=== PATIENT | female | born 1945 | race African-American/Black ===

== ENCOUNTER 2017-03-31 14:35 | Observation (INO) | payer MEDICARE, MEDICAID ==
[~2017-03-31] VITALS: Ht 157.5 cm; Wt 42.0 kg
[~2017-03-31 14:35] MED LIST: ACET325 PO; AZIT600 PO; DAPS100 PO; DOCU1CAP39 PO; Gabapentin PO; METO25 PO; OXYC1SOL5 PO
[2017-03-31 14:37] VITALS: BP 166/87; PULSE 114; TEMP 97.8; O2SAT 96
[2017-03-31] MEDS ORDERED: KETOROLAC TROMETHAMINE 60 MG/2 ML (IM) VIAL IM ONE (16:00)
--- NOTE | 2017-03-31 16:05 | PD ---
HPI Chief Complaint: Injury Time Seen by Provider: 15:53 Travel History International Travel<30 days: No Contact w/Intl Traveler<30days: No Traveled to known affect area: No History of Present Illness HPI 71yo F with PMH of HTN, CKD, CHF, HIV on meds with unknown CD4 count presents to the ED with c/o right knee pain. Pt states she tripped and fell on the side walk about 1 week ago but for the last 2 days, she cant walk on her walker because of the pain. Pt is unable to extend her right knee and is more swollen compare to her left. Denies any fever, chest pain, sob, n/v, abdominal pain, focal weakness or numbness. PFSH Past Medical History Arthritis: Yes Anxiety: Yes Cancer: No Cardiovascular Problems: Yes Congestive Heart Failure: Yes Diminished Hearing: No Endocrine: No Genitourinary: Yes Hypertension: Yes Immune Disorder: No Musculoskeletal: Yes Neurologic: Yes Psychiatric: Yes Reproductive: No Respiratory: No Immunizations Current: Yes Renal Failure: Yes Tetanus Vaccination: Unknown Influenza Vaccination: No ?: Not Menopausal: Yes Past Surgical History AICD: No Arteriovenous Shunt: No Section: Yes (x 2) Gynecologic Surgery: Yes ( X 2) Insulin Pump: No Joint Replacement: No Pacemaker: No Social History Alcohol Use: Yes (OCC- beer ) Tobacco Use: No Substance Use: No Allergies-Medications (Allergen,Severity, Reaction): Coded Allergies: No Known Allergies (Unverified , 03/07/15) Reported Meds & Prescriptions Reported Meds & Active Scripts Active Reported Mepron Liq (Atovaquone) 750 Mg/5 Ml Susp 1,500 Mg PO DAILY Take with food. Triumeq (Wcwrestl-Mykjmtlzixiz-Xiohsewnij) 600-50-300 Mg Tab 1 Tab PO DAILY Hazardous agent; use appropriate precautions for handling & disposal. Clonidine (Clonidine HCl) 0.1 Mg Tab 0.1 Mg PO DAILY Lisinopril 40 Mg Tab 40 Mg PO DAILY Review of Systems Except as stated in HPI: all other systems reviewed are Neg Physical Exam Narrative GENERAL: 71yo F in moderate distress. SKIN: Focused skin assessment warm/dry. HEAD: Atraumatic. Normocephalic. EYES: Pupils equal and round. No scleral icterus. No injection or drainage. ENT: No nasal bleeding or discharge. Mucous membranes pink and moist. NECK: Trachea midline. No JVD. CARDIOVASCULAR: Regular rate and rhythm. No murmur appreciated. RESPIRATORY: No accessory muscle use. Clear to auscultation. Breath sounds equal bilaterally. GASTROINTESTINAL: Abdomen soft, non-tender, nondistended. MUSCULOSKELETAL: Right knee: +Mild erythema and warmth. +Diffuse ttp. Mild edema. Unable to extend. Sensation intact. DP 2+. NEUROLOGICAL: Awake and alert. No obvious cranial nerve deficits. Motor grossly within normal limits. Normal speech. PSYCHIATRIC: Appropriate mood and affect; insight and judgment normal. Data Data Last Documented VS Vital Signs Date Time Temp Pulse Resp B/P Pulse Ox O2 Delivery O2 Flow Rate FiO2 03/31/17 18:56 94 20 198/87 95 03/31/17 18:55 Room Air 03/31/17 14:37 97.8 Orders Knee, Ltd (1 Or 2vws) (03/31/17 ) Hip, Uni(Ap&Lat) W Ap Pelvis (03/31/17 ) Ketorolac Inj (Toradol Inj) (03/31/17 16:00) Morphine Inj (Morphine Inj) (03/31/17 16:15) Complete Blood Count With Diff (03/31/17 16:05) Basic Metabolic Panel (Bmp) (03/31/17 16:05) Prothrombin Time / Inr (Pt) (03/31/17 16:05) Act Partial Throm Time (Ptt) (03/31/17 16:05) Westergren Sedimentation Rate (03/31/17 16:05) C-Reactive Protein (Crp) (03/31/17 16:05) Blood Culture (03/31/17 16:08) Lactic Acid Sepsis Protocol (03/31/17 16:08) Morphine Inj (Morphine Inj) (03/31/17 16:30) Lidocaine 1% Inj (50 Ml) (Xylocaine 1% I (03/31/17 16:45) Vancomycin Inj (Vancomycin Inj) (03/31/17 18:30) Cefepime Inj (Maxipime Inj) (03/31/17 18:30) Place In Observation (03/31/17 ) Vital Signs (Adult) REMY.Q4H (03/31/17 18:46) Activity Bed Rest (03/31/17 18:46) Sodium Chloride 0.9% Flush (Ns Flush) (03/31/17 21:00) Consult Orthopedic (03/31/17 ) (Hub Use Only)Inp Phy Cons/Ref (03/31/17 ) Admit Order (Ed Use Only) (03/31/17 20:20) Labs Laboratory Tests Test 03/31/17 03/31/17 16:35 16:40 White Blood Count 4.4 TH/MM3 Red Blood Count 3.85 MIL/MM3 Hemoglobin 10.9 GM/DL Hematocrit 32.7 % Mean Corpuscular Volume 84.8 FL Mean Corpuscular Hemoglobin 28.3 PG Mean Corpuscular Hemoglobin 33.3 % Concent Red Cell Distribution Width 14.6 % Platelet Count 289 TH/MM3 Mean Platelet Volume 9.0 FL Neutrophils (%) (Auto) 73.6 % Lymphocytes (%) (Auto) 15.6 % Monocytes (%) (Auto) 9.2 % Eosinophils (%) (Auto) 1.3 % Basophils (%) (Auto) 0.3 % Neutrophils # (Auto) 3.2 TH/MM3 Lymphocytes # (Auto) 0.7 TH/MM3 Monocytes # (Auto) 0.4 TH/MM3 Eosinophils # (Auto) 0.1 TH/MM3 Basophils # (Auto) 0.0 TH/MM3 CBC Comment DIFF FINAL Differential Comment Erythrocyte Sedimentation Rate GREATER THAN 140 mm/hr Prothrombin Time 10.5 SEC Prothromb Time International 1.0 RATIO Ratio Activated Partial 26.8 SEC Thromboplast Time Sodium Level 139 MEQ/L Potassium Level 5.0 MEQ/L Chloride Level 110 MEQ/L Carbon Dioxide Level 23.0 MEQ/L Anion Gap 6 MEQ/L Blood Urea Nitrogen 55 MG/DL Creatinine 2.76 MG/DL Estimat Glomerular Filtration 21 ML/MIN Rate Random Glucose 101 MG/DL Calcium Level 9.5 MG/DL C-Reactive Protein 7.89 MG/DL Lactic Acid Level 0.9 mmol/L MDM Medical Decision Making Medical Screen Exam Complete: Yes Emergency Medical Condition: Yes Differential Diagnosis Septic joint vs. hemarthrosis vs. contusion vs. cellulitis vs. fracture Narrative Course 71yo with right knee pain s/p fall 1 week ago. States pain worsened last 2 days. Denies any fever. Pt given morphine for pain. Pt was seen at end of my shift and care of patient transferred to next team to follow up labs, xray as well as reevaluate. Diagnosis Primary Impression: Knee pain Qualified Code: M25.561 - Acute pain of right knee Rachelle Morejon DO Mar 31, 2017 16:05
[2017-03-31] MEDS ORDERED: MORPHINE SULFATE 4 MG/ML INJ IV PUSH ONE (16:15)
[2017-03-31] MEDS ORDERED: LISI40TA PO (16:23)
[2017-03-31] MEDS ORDERED: CLON0.1T PO (16:23)
[2017-03-31] MEDS ORDERED: ABAC1TAB3 PO (16:24)
[2017-03-31] MEDS ORDERED: ATOV750UDC PO (16:27)
[2017-03-31] MEDS ORDERED: MORPHINE SULFATE 8 MG/ML INJ IV PUSH ONE (16:30)
[2017-03-31] MEDS ORDERED: LIDOCAINE HCL 1% 50 ML VIAL INFIL ONE (16:45)
[2017-03-31 17:05] LABS: AUTOMATED NEUTROPHIL # 3.2 TH/MM3 (1.8-7.7); BASOPHIL % 0.3 % (0.0-2.0); EOSINOPHIL # 0.1 TH/MM3 (0-0.4); EOSINOPHIL % 1.3 % (0.0-4.0); HEMATOCRIT 32.7 % (35.0-46.0); HEMO FLAGS DIFF FINAL; LYMPH % 15.6 % (9.0-44.0); LYMPHOCYTE # 0.7 TH/MM3 (1.0-4.8); MEAN CELL VOLUME 84.8 FL (80.0-100.0); MEAN CORPUSCULAR HEMOGLOBIN 28.3 PG (27.0-34.0); MEAN CORPUSCULAR HGB CONC 33.3 % (32.0-36.0); MONO % 9.2 % (0.0-8.0); NEUT % 73.6 % (16.0-70.0); PLATELET COUNT 289 TH/MM3 (150-450); RED BLOOD COUNT 3.85 MIL/MM3 (4.00-5.30); RED CELL DISTRIBUTION WIDTH 14.6 % (11.6-17.2); WHITE BLOOD COUNT 4.4 TH/MM3 (4.0-11.0)
[2017-03-31 17:17] LABS: APTT (PATIENT) 26.8 SEC (24.3-30.1); PROTHROMBIN TIME - PATIENT 10.5 SEC (9.8-11.6)
--- NOTE | 2017-03-31 17:26 | RADRPT ---
EXAM DATE/TIME: 03/31/2017 16:54 [facility] COMPARISON: No previous studies available for comparison. INDICATIONS : Right knee pain after fall. MEDICAL HISTORY : None. SURGICAL HISTORY : None. ENCOUNTER: Initial ACUITY: 1 week PAIN SCORE: 10/10 LOCATION: Right knee. FINDINGS: Two view examination of the right knee demonstrates no evidence of fracture or dislocation. Bony min eralization is normal. Marked osteopenia. CONCLUSION: Unremarkable limited examination of the right knee. Marked soft tissue swelling overlying the suprapa tellar region Brody Odonnell MD on March 31, 2017 at 17:24 Board Certified Radiologist. This report was verified electronically.
--- NOTE | 2017-03-31 17:27 | RADRPT ---
EXAM DATE/TIME: 03/31/2017 16:54 [facility] COMPARISON: No previous studies available for comparison. INDICATIONS : Right hip pain after fall. MEDICAL HISTORY : None. SURGICAL HISTORY : None. ENCOUNTER: Initial ACUITY: 1 week PAIN SCORE: 10/10 LOCATION: Right hip. FINDINGS: Examination of the right hip was performed with AP Pelvis. The primary and secondary trabecular brook nena of the femoral neck is intact. The hip joint is of normal width without significant sclerosis or bony hypertrophy. The acetabulum is grossly intact. CONCLUSION: Unremarkable examination of the right hip. Brody Odonnell MD on March 31, 2017 at 17:25 Board Certified Radiologist. This report was verified electronically.
[2017-03-31] MEDS ORDERED: CEFEPIME INJ 2,000 MG in SODIUM CHLORIDE 0.9% INJ 100 ML IV ONE (18:30)
[2017-03-31] MEDS ORDERED: VANCOMYCIN INJ 650 MG in SODIUM CHLOR 0.9% 250 ML INJ 250 ML IV ONE (18:30)
--- NOTE | 2017-03-31 18:33 | PD ---
Physical Exam Date Seen by Provider: Mar 31, 2017 Data Data Last Documented VS Vital Signs Date Time Temp Pulse Resp B/P Pulse Ox O2 Delivery O2 Flow Rate FiO2 03/31/17 18:56 94 20 198/87 95 03/31/17 18:55 Room Air 03/31/17 14:37 97.8 Orders Knee, Ltd (1 Or 2vws) (03/31/17 ) Hip, Uni(Ap&Lat) W Ap Pelvis (03/31/17 ) Ketorolac Inj (Toradol Inj) (03/31/17 16:00) Morphine Inj (Morphine Inj) (03/31/17 16:15) Complete Blood Count With Diff (03/31/17 16:05) Basic Metabolic Panel (Bmp) (03/31/17 16:05) Prothrombin Time / Inr (Pt) (03/31/17 16:05) Act Partial Throm Time (Ptt) (03/31/17 16:05) Westergren Sedimentation Rate (03/31/17 16:05) C-Reactive Protein (Crp) (03/31/17 16:05) Blood Culture (03/31/17 16:08) Lactic Acid Sepsis Protocol (03/31/17 16:08) Morphine Inj (Morphine Inj) (03/31/17 16:30) Lidocaine 1% Inj (50 Ml) (Xylocaine 1% I (03/31/17 16:45) Vancomycin Inj (Vancomycin Inj) (03/31/17 18:30) Cefepime Inj (Maxipime Inj) (03/31/17 18:30) Place In Observation (03/31/17 ) Vital Signs (Adult) REMY.Q4H (03/31/17 18:46) Activity Bed Rest (03/31/17 18:46) Sodium Chloride 0.9% Flush (Ns Flush) (03/31/17 21:00) Consult Orthopedic (03/31/17 ) (Hub Use Only)Inp Phy Cons/Ref (03/31/17 ) Admit Order (Ed Use Only) (03/31/17 20:20) Labs Laboratory Tests Test 03/31/17 03/31/17 16:35 16:40 White Blood Count 4.4 TH/MM3 Red Blood Count 3.85 MIL/MM3 Hemoglobin 10.9 GM/DL Hematocrit 32.7 % Mean Corpuscular Volume 84.8 FL Mean Corpuscular Hemoglobin 28.3 PG Mean Corpuscular Hemoglobin 33.3 % Concent Red Cell Distribution Width 14.6 % Platelet Count 289 TH/MM3 Mean Platelet Volume 9.0 FL Neutrophils (%) (Auto) 73.6 % Lymphocytes (%) (Auto) 15.6 % Monocytes (%) (Auto) 9.2 % Eosinophils (%) (Auto) 1.3 % Basophils (%) (Auto) 0.3 % Neutrophils # (Auto) 3.2 TH/MM3 Lymphocytes # (Auto) 0.7 TH/MM3 Monocytes # (Auto) 0.4 TH/MM3 Eosinophils # (Auto) 0.1 TH/MM3 Basophils # (Auto) 0.0 TH/MM3 CBC Comment DIFF FINAL Differential Comment Erythrocyte Sedimentation Rate GREATER THAN 140 mm/hr Prothrombin Time 10.5 SEC Prothromb Time International 1.0 RATIO Ratio Activated Partial 26.8 SEC Thromboplast Time Sodium Level 139 MEQ/L Potassium Level 5.0 MEQ/L Chloride Level 110 MEQ/L Carbon Dioxide Level 23.0 MEQ/L Anion Gap 6 MEQ/L Blood Urea Nitrogen 55 MG/DL Creatinine 2.76 MG/DL Estimat Glomerular Filtration 21 ML/MIN Rate Random Glucose 101 MG/DL Calcium Level 9.5 MG/DL C-Reactive Protein 7.89 MG/DL Lactic Acid Level 0.9 mmol/L [facility] Medical Record Reviewed: Yes Supervised Visit with ELIZABETH: No Interpretation(s) Vital Signs Date Time Temp Pulse Resp B/P Pulse Ox O2 Delivery O2 Flow Rate FiO2 03/31/17 14:37 97.8 114 166/87 96 Laboratory Tests Test 03/31/17 03/31/17 16:35 16:40 White Blood Count 4.4 TH/MM3 (4.0-11.0) Red Blood Count 3.85 MIL/MM3 (4.00-5.30) Hemoglobin 10.9 GM/DL (11.6-15.3) Hematocrit 32.7 % (35.0-46.0) Mean Corpuscular Volume 84.8 FL (80.0-100.0) Mean Corpuscular Hemoglobin 28.3 PG (27.0-34.0) Mean Corpuscular Hemoglobin 33.3 % Concent (32.0-36.0) Red Cell Distribution Width 14.6 % (11.6-17.2) Platelet Count 289 TH/MM3 (150-450) Mean Platelet Volume 9.0 FL (7.0-11.0) Neutrophils (%) (Auto) 73.6 % (16.0-70.0) Lymphocytes (%) (Auto) 15.6 % (9.0-44.0) Monocytes (%) (Auto) 9.2 % (0.0-8.0) Eosinophils (%) (Auto) 1.3 % (0.0-4.0) Basophils (%) (Auto) 0.3 % (0.0-2.0) Neutrophils # (Auto) 3.2 TH/MM3 (1.8-7.7) Lymphocytes # (Auto) 0.7 TH/MM3 (1.0-4.8) Monocytes # (Auto) 0.4 TH/MM3 (0-0.9) Eosinophils # (Auto) 0.1 TH/MM3 (0-0.4) Basophils # (Auto) 0.0 TH/MM3 (0-0.2) CBC Comment DIFF FINAL Differential Comment Erythrocyte Sedimentation Rate GREATER THAN 140 mm/hr (0-30) Prothrombin Time 10.5 SEC (9.8-11.6) Prothromb Time International 1.0 RATIO Ratio Activated Partial 26.8 SEC Thromboplast Time (24.3-30.1) Sodium Level 139 MEQ/L (136-145) Potassium Level 5.0 MEQ/L (3.5-5.1) Chloride Level 110 MEQ/L (98-107) Carbon Dioxide Level 23.0 MEQ/L (21.0-32.0) Anion Gap 6 MEQ/L (5-15) Blood Urea Nitrogen 55 MG/DL (7-18) Creatinine 2.76 MG/DL (0.50-1.00) Estimat Glomerular Filtration 21 ML/MIN (>89) Rate Random Glucose 101 MG/DL (74-106) Calcium Level 9.5 MG/DL (8.5-10.1) C-Reactive Protein 7.89 MG/DL (0.00-0.30) Lactic Acid Level 0.9 mmol/L (0.4-2.0) Last Impressions Knee X-Ray 03/31/17 0000 Signed Impressions: Service Date/Time: Friday, March 31, 2017 16:54 - CONCLUSION: Unremarkable limited examination of the right knee. Marked soft tissue swelling overlying the suprapatellar region Brody Odonnell MD Hip and Pelvis X-Ray 03/31/17 0000 Signed Impressions: Service Date/Time: Friday, March 31, 2017 16:54 - CONCLUSION: Unremarkable examination of the right hip. Brody Odonnell MD Differential Diagnosis Differential includes septic arthritis, hemarthrosis, cellulitis, knee effusion Narrative Course patient signed out to me by Dr. Morejon, pending labs and xrays Patient is a 71 year old female with hx of htn, ckd, hiv chf, - unknown CD4 count- presents to ER with c/o of right knee pain. Patient reports that 1-1.5 weeks ago, she fell and landed on her right knee. Patient reports that she does use a walker to ambulate, patient reports that she has not been able in late for the past 2 days due to pain to her right knee. Patient with no fevers or chills, no nausea or vomiting. Laboratory Tests Test 03/31/17 03/31/17 16:35 16:40 White Blood Count 4.4 TH/MM3 (4.0-11.0) Red Blood Count 3.85 MIL/MM3 (4.00-5.30) Hemoglobin 10.9 GM/DL (11.6-15.3) Hematocrit 32.7 % (35.0-46.0) Mean Corpuscular Volume 84.8 FL (80.0-100.0) Mean Corpuscular Hemoglobin 28.3 PG (27.0-34.0) Mean Corpuscular Hemoglobin 33.3 % Concent (32.0-36.0) Red Cell Distribution Width 14.6 % (11.6-17.2) Platelet Count 289 TH/MM3 (150-450) Mean Platelet Volume 9.0 FL (7.0-11.0) Neutrophils (%) (Auto) 73.6 % (16.0-70.0) Lymphocytes (%) (Auto) 15.6 % (9.0-44.0) Monocytes (%) (Auto) 9.2 % (0.0-8.0) Eosinophils (%) (Auto) 1.3 % (0.0-4.0) Basophils (%) (Auto) 0.3 % (0.0-2.0) Neutrophils # (Auto) 3.2 TH/MM3 (1.8-7.7) Lymphocytes # (Auto) 0.7 TH/MM3 (1.0-4.8) Monocytes # (Auto) 0.4 TH/MM3 (0-0.9) Eosinophils # (Auto) 0.1 TH/MM3 (0-0.4) Basophils # (Auto) 0.0 TH/MM3 (0-0.2) CBC Comment DIFF FINAL Differential Comment Erythrocyte Sedimentation Rate GREATER THAN 140 mm/hr (0-30) Prothrombin Time 10.5 SEC (9.8-11.6) Prothromb Time International 1.0 RATIO Ratio Activated Partial 26.8 SEC Thromboplast Time (24.3-30.1) Sodium Level 139 MEQ/L (136-145) Potassium Level 5.0 MEQ/L (3.5-5.1) Chloride Level 110 MEQ/L (98-107) Carbon Dioxide Level 23.0 MEQ/L (21.0-32.0) Anion Gap 6 MEQ/L (5-15) Blood Urea Nitrogen 55 MG/DL (7-18) Creatinine 2.76 MG/DL (0.50-1.00) Estimat Glomerular Filtration 21 ML/MIN (>89) Rate Random Glucose 101 MG/DL (74-106) Calcium Level 9.5 MG/DL (8.5-10.1) C-Reactive Protein 7.89 MG/DL (0.00-0.30) Lactic Acid Level 0.9 mmol/L (0.4-2.0) Labs reviewed, WBC 4.4, hemoglobin 10.9, hematocrit 32.7, ESR is greater than 140 CRP is 7.89 Sodium 139, potassium 5.0, BUN 55, creatinine 2.76 (elevated when compared to BUN/CR from 03/23/15: 30/1.80) Last Impressions Knee X-Ray 03/31/17 0000 Signed Impressions: Service Date/Time: Friday, March 31, 2017 16:54 - CONCLUSION: Unremarkable limited examination of the right knee. Marked soft tissue swelling overlying the suprapatellar region Brody Odonnell MD Hip and Pelvis X-Ray 03/31/17 0000 Signed Impressions: Service Date/Time: Friday, March 31, 2017 16:54 - CONCLUSION: Unremarkable examination of the right hip. Brody Odonnell MD X-ray of the knee shows some soft tissue swelling over the suprapatellar region. She does have warmth to her right knee with swelling, with mild swelling. Patient with elevated ESR and CRP, this could be due to septic arthritis vs hemarthrosis. Septic arthritis is within the differential. Her elevated CRP and ESR could be secondary to HIV as patient does follow up with Dr. Fuller but is not compliant with her medications. Unknown what her CD4 count is. Case reviewed with Dr. Knott who accepts pt to service. Request call made to Dr. Casper for further plan of care - request that knee be aspirated - and patient be started with iv vanco and ancef I performed aspiration of right knee - iv vanco and ancef ordered Procedures Procedure Narrative right knee effusion aspirate: 1% lidocaine used as an anesthetic. After area was cleaned with Betadine, right knee was flexed, using sterile precautions, a 22-gauge LP needle was placed under patella at 10oclock position, 10cc of clear synovial fluids drained from right knee. Cultures and gram stain sent Diagnosis Primary Impression: Septic joint of right knee joint Qualified Code: M00.9 - Pyogenic arthritis of right knee joint, due to unspecified organism Additional Impression: Renal failure Qualified Code: N19 - Renal failure, unspecified chronicity Admitting Information Admitting Physician Requests: Kaycee Barbosa DO Mar 31, 2017 18:33
[2017-03-31 18:55] VITALS: BP 200/114; PULSE 95; RESP 18; O2SAT 95
[2017-03-31 18:56] VITALS: BP 198/87; PULSE 94; RESP 20; O2SAT 95
[2017-03-31] MEDS ORDERED: ceFAZolin 2 GM PREMIX 50 ML IV ONE (21:00)
[2017-03-31] MEDS ORDERED: VANCOMYCIN INJ 1,000 MG in SODIUM CHLOR 0.9% 250 ML INJ 250 ML IV ONE (21:00)
[2017-03-31 21:29] VITALS: BP 177/98; PULSE 90; RESP 18; O2SAT 96
[2017-03-31 22:50] LABS: WBC, SYNOVIAL FLUID 870 /MM3 (0-200)
[2017-03-31 23:03] LABS: SYNOVIAL FLUID CRYSTALS POS - URIC ACID
--- NOTE | 2017-03-31 23:23 | HHI.HP ---
[facility] Storm Taylor MD Admission Diagnosis Possible septic joint Diagnoses: Chief Complaint: right knee pain and sweeling Travel History International Travel<30 Days: No Contact w/Intl Traveler <30 Da: No Traveled to Known Affected Are: No History of Present Illness Written by PATY Camargo acting as scribe for [Frankie] on 03/31/17 at 23: 17. 71 y/o female with a history HTN, CKD, CHF, and HIV presented to the ED with complaints of swelling and pain in her right knee. She states the pain and swelling has been going on for 3-4 days. She states it hurts to walk and bend her knee. She does walk with a walker. She denies falling or any trauma to her knee. She states she had fevers at home with unknown temp, and her knee is very warm. She denies any chills, chest pain, sob, nausea, vomiting, or dysuria. Review of Systems Except as stated in HPI: all other systems reviewed are Neg Past Family Social History Past Medical History HTN CKD CHF HIV Past Surgical History C section x 2 Reported Medications Reported Meds & Active Scripts Active Reported Mepron Liq (Atovaquone) 750 Mg/5 Ml Susp 1,500 Mg PO DAILY Take with food. Triumeq (Iueqxehw-Thbxtyaehbxy-Tzviuwsfpj) 600-50-300 Mg Tab 1 Tab PO DAILY Hazardous agent; use appropriate precautions for handling & disposal. Clonidine (Clonidine HCl) 0.1 Mg Tab 0.1 Mg PO DAILY Lisinopril 40 Mg Tab 40 Mg PO DAILY Allergies: Coded Allergies: No Known Allergies (Unverified , 04/07/17) Active Ordered Medications Current Medications Medications (Trade) Dose Ordered Sig/Caity Route Start Time Stop Time Status Last Admin (NS Flush) 2 ml BID IV FLUSH 03/31/17 21:00 Family History Sister: Breast cancer Social History Tobacco use: Denies Alcohol use: 2 Beers a day Illicit drug use: Denies Physical Exam Vital Signs Vital Signs Date Time Temp Pulse Resp B/P Pulse Ox O2 Delivery O2 Flow Rate FiO2 7/18/17 21:29 90 18 177/98 96 Room Air 03/31/17 18:56 94 20 198/87 95 03/31/17 18:55 95 18 200/114 95 Room Air 03/31/17 14:37 97.8 114 166/87 96 Physical Exam GENERAL: This is a well-nourished, well-developed patient, in no apparent distress. SKIN: No rashes, ecchymoses or lesions. Cool and dry. Right knee warm to touch. HEAD: Atraumatic. Normocephalic. EYES: Pupils equal round and reactive. Extraocular motions intact. ENT: Nose without bleeding, purulent drainage or septal hematoma. Airway patent. NECK: Trachea midline. No JVD or lymphadenopathy. CARDIOVASCULAR: Regular rate and rhythm without murmurs, gallops, or rubs. RESPIRATORY: Clear to auscultation. Breath sounds equal bilaterally. No wheezes , rales, or rhonchi. GASTROINTESTINAL: Abdomen soft, non-tender, nondistended. No hepato-splenomegaly , or palpable masses. No guarding. MUSCULOSKELETAL: Right knee edematous and tender to touch. Unable to bend. No calf tenderness. NEUROLOGICAL: Awake and alert. Motor and sensory grossly within normal limits. Normal speech. Laboratory Laboratory Tests Test 03/31/17 03/31/17 03/31/17 16:35 16:40 21:40 White Blood Count 4.4 Red Blood Count 3.85 Hemoglobin 10.9 Hematocrit 32.7 Mean Corpuscular Volume 84.8 Mean Corpuscular Hemoglobin 28.3 Mean Corpuscular Hemoglobin 33.3 Concent Red Cell Distribution Width 14.6 Platelet Count 289 Mean Platelet Volume 9.0 Neutrophils (%) (Auto) 73.6 Lymphocytes (%) (Auto) 15.6 Monocytes (%) (Auto) 9.2 Eosinophils (%) (Auto) 1.3 Basophils (%) (Auto) 0.3 Neutrophils # (Auto) 3.2 Lymphocytes # (Auto) 0.7 Monocytes # (Auto) 0.4 Eosinophils # (Auto) 0.1 Basophils # (Auto) 0.0 CBC Comment DIFF FINAL Differential Comment Erythrocyte Sedimentation Rate GREATER THAN 140 Prothrombin Time 10.5 Prothromb Time International 1.0 Ratio Activated Partial 26.8 Thromboplast Time Sodium Level 139 Potassium Level 5.0 Chloride Level 110 Carbon Dioxide Level 23.0 Anion Gap 6 Blood Urea Nitrogen 55 Creatinine 2.76 Estimat Glomerular Filtration 21 Rate Random Glucose 101 Calcium Level 9.5 C-Reactive Protein 7.89 Lactic Acid Level 0.9 Synovial Fluid Color YELLOW Synovial Fluid Appearance SLIGHT Synovial Fluid WBC 870 Synovial Fluid RBC 5425 Synovial Fluid Crystals POS - URIC ACID Date/Time Procedure Status Source Growth 03/31/17 21:40 Gram Stain Received Fluid Synovial Fluid Pending 03/31/17 21:40 Body Fluid Culture Received Fluid Synovial Fluid Pending 03/31/17 16:40 Aerobic Blood Culture Received Blood Peripheral Pending 03/31/17 16:40 Anaerobic Blood Culture Received Blood Peripheral Pending Result Diagram: 03/31/17 1635 03/31/17 1635 Imaging Last Impressions Knee X-Ray 03/31/17 0000 Signed Impressions: Service Date/Time: Friday, March 31, 2017 16:54 - CONCLUSION: Unremarkable limited examination of the right knee. Marked soft tissue swelling overlying the suprapatellar region Brody Odonnell MD Hip and Pelvis X-Ray 03/31/17 0000 Signed Impressions: Service Date/Time: Friday, March 31, 2017 16:54 - CONCLUSION: Unremarkable examination of the right hip. Brody Odonnell MD Assessment and Plan Problem List: (1) Septic joint of right knee joint ICD Code: M00.9 Status: Acute (2) Acute kidney injury ICD Code: N17.9 Status: Acute (3) HIV disease ICD Code: B20 Status: Chronic (4) HTN (hypertension) ICD Code: I10 Status: Chronic Assessment and Plan 71 y/o female with a history HTN, CKD, CHF, and HIV presented to the ED with complaints of swelling and pain in her right knee. Right knee pain, questionable septic joint vs gout Knee xray reviewed and shows Unremarkable limited examination of the right knee. Marked soft tissue swelling overlying the suprapatellar region Synovial aspirations positive for uric acid -Consult orthopedic for recommendations -Dilaudid IV for pain management -Prednisone 60mg Daily Acute Kidney injury on CKD stage 3, creatine 2.7, baseline 1.8 -Encourage fluids by mouth due to CHF history -BMP in AM HTN, chronic -Cont home medication clonidine, hold lisinopril for now due to ROXANNA HIV, chronic -Reorder home medications DVT prophylaxis: SCDs GI prophylaxis: Protonix This note was transcribed by [email or web address] [Tg [email or web address]]. I, Dr. Miguel Ángel David personally performed the history, physical exam, and medical decision making; and confirmed the accuracy of the information in the transcribed note. Authenticated by Dr. Miguel Ángel David on 03/31/17 at 23:17. Discussed Condition With Patient Problem Qualifiers (1) Septic joint of right knee joint: Qualified Code: M00.9 - Pyogenic arthritis of right knee joint, due to unspecified organism Tg Figueredo Mar 31, 2017 23:23 Miguel Ángel David MD Apr 13, 2017 20:58
[2017-03-31] MEDS ORDERED: HYDROmorphone HCL PF 1 MG/ML VIAL IV PUSH PRN (23:30)
[2017-04-01] VITALS (10 sets, daily range): BP systolic 104–172; BP diastolic 64–96; PULSE 72–107; RESP 14–18; TEMP 97.5–98.6; O2SAT 93–97
[2017-04-01] MEDS: SODIUM CHLORIDE 0.9% FLUSH 10 ML FLUSH IV FLUSH SCH ×3 (02:42→20:15)
[2017-04-01] MEDS ORDERED: NON-FORMULARY DRUG (Abacavir-Dolutegravir-Lamivudine (Triumeq) 1 TAB) PO SCH (09:00)
--- NOTE | 2017-04-01 10:58 | MB ---
cc: EVENS ROMERO DATE OF CONSULTATION: 04/01/2017 REASON FOR CONSULTATION Right knee pain and swelling. CONSULTING PHYSICIAN Dr. Jayshree Knott. HISTORY OF PRESENT ILLNESS Ms. Frye is a 71-year-old female who has multiple medical problems including hypertension, chronic renal failure, CHF and HIV. She had a fall several days ago. She began developing pain and swelling of her right knee. She presented to the emergency room. X-rays were negative for fracture. She had warmth and effusion of the knee. Her knee was aspirated in the emergency room. The aspirate was positive for gout crystals. She continued to have significant right knee pain. Pain is worse with movement or ambulation. PAST MEDICAL HISTORY ILLNESSES 1. Hypertension. 2. Renal failure. 3. HIV. 4. CHF. SURGERIES x2. MEDICATIONS Include: 1. Mepron. 2. Triumeq. 3. Clonidine. 4. Lisinopril. ALLERGIES NO KNOWN DRUG ALLERGIES. FAMILY HISTORY Positive for breast cancer in her sister. SOCIAL HISTORY The patient denies tobacco or drug use. She does drink beer daily. REVIEW OF SYSTEMS The patient denies headache, visual changes, neck pain, chest pain, shortness of breath, abdominal pain, nausea, vomiting or recent weight loss. She complains of right knee pain and swelling. PHYSICAL EXAMINATION GENERAL: The patient is a thin 71-year-old female, in no acute distress. She is awake and alert. She is alert and oriented x3. VITAL SIGNS: Temperature 98.6, pulse 100, respirations 15, blood pressure 142/88, O2 sat 95% on room air. HEAD: The patient is normocephalic. Pupils are equal. NECK: Soft, nontender. Trachea is midline. ABDOMEN: Soft, nontender, nondistended. EXTREMITIES: Examination of bilateral upper extremities reveals no pain with shoulder, elbow or wrist motion. She has intact sensation in all fingers. She has good cap refill in all fingers. Chemical Laboratory Chief strength is +5. Skin is intact. Radial pulses are palpable bilaterally. Examination of the left leg reveals no pain with hip, knee or ankle motion. Skin is intact. Dorsalis pedis pulses palpable. Sensation is intact. Examination of right leg reveals no tenderness around her hip, ankle or foot. Sensation is intact. Dorsalis pedis pulses palpable. She has moderate swelling around the knee. There is no erythema. There is no fluctuance noted. There is a small joint effusion. She has pain with knee motion. Her knee is stable to varus and valgus stresses. X-RAYS X-rays of right knee were reviewed. X-rays reveal no evidence of acute fracture. LABORATORY DATA Left knee aspirate labs were reviewed. She had a total of 870 white blood cells and was positive for uric acid crystals. IMPRESSION 1. Chronic renal failure. 2. Hypertension. 3. Gout. 4. HIV. PLAN At this point I would recommend medical management. She does not need any surgical intervention at this time. The patient will need treatment for her gout. She may weight-bear as tolerated. Physical therapy has been consulted. No further orthopedic followup is necessary at this time. All questions were answered. MD JACI Rodriguez/RAJ /10:32 AM /10:47 AM
[2017-04-01] MEDS: PANTOPRAZOLE SODIUM 40 MG VIAL IV PUSH SCH ×2 (12:49→20:15)
[2017-04-01] MEDS: ABACAVIR SULFATE 300 MG TAB PO SCH (13:01)
[2017-04-01] MEDS: cloNIDine HCL 0.1 MG TAB PO SCH (13:02)
[2017-04-01] MEDS: predniSONE 20 MG TAB PO SCH (13:02)
[2017-04-01] MEDS: DOLUTEGRAVIR SODIUM 50 MG TAB PO SCH (13:02)
[2017-04-01] MEDS: ATOVAQUONE SUSP 750 MG/5 ML UDC PO SCH (13:03)
--- NOTE | 2017-04-01 15:03 | HHI.PR ---
Subjective Remarks Follow-up for gouty arthritis Patient stated that she has mild improvement in her right knee pain which continues have pain which makes it difficult for her to walk. She remains afebrile. She has no other complaints. Objective Vitals Vital Signs Date Time Temp Pulse Resp B/P Pulse Ox O2 Delivery O2 Flow Rate FiO2 04/01/17 12:36 97.5 100 14 172/96 04/01/17 11:30 20 04/01/17 08:00 105 04/01/17 07:50 98.6 100 15 142/88 95 04/01/17 03:39 98.0 107 18 157/92 95 04/01/17 00:15 98.0 104 18 166/84 93 04/01/17 00:00 101 03/31/17 21:29 90 18 177/98 96 Room Air 03/31/17 18:56 94 20 198/87 95 03/31/17 18:55 95 18 200/114 95 Room Air Result Diagram: 03/31/17 1635 03/31/17 1635 Objective Remarks GENERAL: in NAD CARDIOVASCULAR: Regular rate and rhythm without murmurs, gallops, or rubs. RESPIRATORY: Breath sounds equal bilaterally. No accessory muscle use. GASTROINTESTINAL: Abdomen soft, non-tender, nondistended. MUSCULOSKELETAL: right knee with swelling. no erythema noted. decrease ROM due to pain. Medications and IVs Current Medications Ketorolac Tromethamine (Toradol Inj) 30 mg ONCE ONCE IM ; Start 03/31/17 at 16: 00; Stop 03/31/17 at 16:07; Status DC Morphine Sulfate (Morphine Inj) 4 mg ONCE ONCE IV PUSH ; Start 03/31/17 at 16: 15; Stop 03/31/17 at 16:24; Status DC Morphine Sulfate (Morphine Inj) 4 mg ONCE ONCE IV PUSH Last administered on t 17:12; Start 03/31/17 at 16:30; Stop 03/31/17 at 16:31; Status DC Lidocaine HCl 50 ml 50 ml ONCE ONCE INFIL ; Start 03/31/17 at 16:45; Stop 03/31 at 16:46; Status DC Vancomycin HCl 650 mg/Sodium Chloride 256.5 ml @ 250 mls/hr ONCE ONCE IV ; Start 03/31/17 at 18:30; Stop 03/31/17 at 18:49; Status DC Cefepime HCl/ Sodium Chloride (Maxipime Inj/NS Inj) 100 ml @ 200 mls/hr ONCE ONCE IV ; Start 03/31/17 at 18:30; Stop 03/31/17 at 18:49; Status DC Sodium Chloride 2 ml 2 ml BID IV FLUSH Last administered on 04/01/17 02:42; Start 03/31/17 at 21:00 Vancomycin HCl 1000 mg/Sodium Chloride 250 ml @ 250 mls/hr ONCE ONCE IV Last administered on 04/01/17 02:42; Start 03/31/17 at 21:00; Stop 03/31/17 at 21:59 ; Status DC Cefazolin Sodium/ Dextrose (Ancef 2 Gm Premix) 50 ml @ 100 mls/hr ONCE ONCE IV Last administered on 04/01/17 02:43; Start 03/31/17 at 21:00; Stop at 21:36; Status DC Hydromorphone HCl (Dilaudid Pf Inj) 0.2 mg Q4H PRN IV PUSH pain 6-10 Last administered on 04/01/17 11:00; Start 03/31/17 at 23:30; Stop 04/01/17 at 13:45 ; Status DC Prednisone (Deltasone) 60 mg DAILY PO Last administered on 04/01/17 13:02; Start 04/01/17 at 09:00 Atovaquone (Mepron Liq) 1,500 mg DAILY PO Last administered on 04/01/17 13:03 ; Start 04/01/17 at 09:00 Clonidine (Catapres) 0.1 mg DAILY PO Last administered on 04/01/17 13:02; Start 04/01/17 at 09:00 Non-Formulary Medication 1 tab DAILY PO ; Start 04/01/17 at 09:00; Status Cancel Pantoprazole Sodium (Protonix Inj) 40 mg Q12H IV PUSH Last administered on 04/01 12:49; Start 04/01/17 at 09:00 Abacavir Sulfate (Ziagen) 600 mg DAILY PO Last administered on 04/01/17 13:01 ; Start 04/01/17 at 09:00 Lamivudine (Epivir) 300 mg DAILY PO Last administered on 04/01/17 13:01; Start 04/01/17 at 09:00 Acetaminophen/ Hydrocodone Bitart ([place] 5-325 Mg) 1 tab Q4H PRN PO pain 1-7; Start 04/01/17 at 13:45 Acetaminophen/ Hydrocodone Bitart ([place] 5-325 Mg) 2 tab Q4H PRN PO pain 8-10 ; Start 04/01/17 at 13:45 A/P Problem List: (1) Septic joint of right knee joint ICD Code: M00.9 Status: Acute (2) Acute kidney injury ICD Code: N17.9 Status: Acute (3) HIV disease ICD Code: B20 Status: Chronic (4) HTN (hypertension) ICD Code: I10 Status: Chronic Assessment and Plan 71 y/o female with a history HTN, CKD, CHF, and HIV presented to the ED with complaints of swelling and pain in her right knee. Gouty arthritis -Knee xray reviewed and shows Unremarkable limited examination of the right knee. Marked soft tissue swelling overlying the suprapatellar region -Synovial aspirations positive for uric acid -Orthopedics consulted no indication for any procedure. -Will start allopurinol and continue prednisone. -PT consulted. -will control pain better with oral medication. Acute Kidney injury on CKD stage 3, creatine 2.7, baseline 1.8 -Will repeat BMP today. I do not see a repeat. -Good urine output but nothing was recorded. Will put strict ins and outs. -Avoid nephrotoxins. HTN, chronic -Cont home medication clonidine, hold lisinopril for now due to ROXANNA HIV, chronic -Continue with home medication. DVT prophylaxis: SCDs GI prophylaxis: Protonix Discharge Planning Pain is uncontrolled patient stated unable to ambulate by herself. Will control pain better most likely can be discharged tomorrow. Problem Qualifiers (1) Septic joint of right knee joint: Qualified Code: M00.9 - Pyogenic arthritis of right knee joint, due to unspecified organism aJyshree Knott MD Apr 01, 2017 15:03
[2017-04-01] MEDS: ALLOPURINOL 100 MG TAB PO SCH (16:23)
[2017-04-01] MEDS: ACETAMINOPHEN/HYDROcodone 325 MG/5 MG TAB PO PRN (19:57)
[2017-04-01 22:35] LABS: BICARBONATE 17.9 MEQ/L (21.0-32.0); POTASSIUM 4.8 MEQ/L (3.5-5.1)
[2017-04-02] VITALS (7 sets, daily range): BP systolic 136–175; BP diastolic 81–97; PULSE 65–77; RESP 16–18; TEMP 96.5–97.8; O2SAT 95–97
--- NOTE | 2017-04-02 09:40 | HHI.FF ---
Face to Face Verification Diagnosis: (1) CHF (congestive heart failure) (2) CKD (chronic kidney disease), stage III (3) CKD (chronic kidney disease), stage IV (4) Gout attack Physical Therapy Order: Evaluate and Treat, Improve ambulation, Strength and gait training Home Health Nursing Order: Medical education Signs/symptoms of disease process I have seen patient Rachelle Frye on 04/02/17. My clinical findings support the need for the requested home health care services because: Ltd mobility - disease progression I certify that my clinical findings support that this patient is homebound because: Unsteady gait/balance Jayshree Knott MD Apr 02, 2017 09:40
[2017-04-02] MEDS ORDERED: ALLO100 PO (09:43)
[2017-04-02] MEDS ORDERED: PRED5PAK PO (09:43)
[2017-04-02] MEDS ORDERED: HYDR-3516 PO (09:43)
[2017-04-02] MEDS ORDERED: AMLO5TAB2 PO (09:44)
[2017-04-02] MEDS: PANTOPRAZOLE SODIUM 40 MG VIAL IV PUSH SCH ×2 (11:51→21:38)
[2017-04-02] MEDS: ABACAVIR SULFATE 300 MG TAB PO SCH (11:51)
[2017-04-02] MEDS: ALLOPURINOL 100 MG TAB PO SCH (11:52)
[2017-04-02] MEDS: predniSONE 20 MG TAB PO SCH (11:52)
[2017-04-02] MEDS: DOLUTEGRAVIR SODIUM 50 MG TAB PO SCH (11:52)
[2017-04-02] MEDS: ATOVAQUONE SUSP 750 MG/5 ML UDC PO SCH (11:53)
[2017-04-02] MEDS: SODIUM CHLORIDE 0.9% FLUSH 10 ML FLUSH IV FLUSH SCH ×2 (11:54→21:38)
[2017-04-02] MEDS: cloNIDine HCL 0.1 MG TAB PO SCH (11:54)
[2017-04-02 12:57] LABS: BICARBONATE 14.8 MEQ/L (21.0-32.0)
--- NOTE | 2017-04-02 14:09 | HHI.PR ---
Subjective Remarks Follow-up for right gouty arthritis Patient's output was not recorded. Per patient she is making good urine output. She stated that her knee pain has improved. She has no other concerns. She remains afebrile. When I asked patient if she had a site damage prevention technician she stated that "she doesn't know but she doesn't think she does." Objective Vitals Vital Signs Date Time Temp Pulse Resp B/P Pulse Ox O2 Delivery O2 Flow Rate FiO2 04/02/17 12:00 97.8 73 16 164/88 96 04/02/17 08:00 97.8 77 16 175/97 95 04/02/17 04:29 97.8 75 16 136/83 97 04/01/17 23:33 97.5 72 16 124/78 97 04/01/17 21:20 18 04/01/17 19:28 98.2 86 18 104/64 97 04/01/17 19:23 105 04/01/17 15:50 97.8 100 14 114/71 94 I/O 04/01/17 04/01/17 04/01/17 04/02/17 04/02/17 04/02/17 06:59 14:59 22:59 06:59 14:59 22:59 Intake Total 200 ml 50 ml Balance 200 ml 50 ml Intake Oral 200 ml 50 ml Result Diagram: 03/31/17 1635 04/02/17 1217 Objective Remarks GENERAL: in NAD CARDIOVASCULAR: Regular rate and rhythm without murmurs, gallops, or rubs. RESPIRATORY: Breath sounds equal bilaterally. No accessory muscle use. GASTROINTESTINAL: Abdomen soft, non-tender, nondistended. MUSCULOSKELETAL: right knee with mild swelling. no erythema noted. Medications and IVs Current Medications Ketorolac Tromethamine (Toradol Inj) 30 mg ONCE ONCE IM ; Start 03/31/17 at 16: 00; Stop 03/31/17 at 16:07; Status DC Morphine Sulfate (Morphine Inj) 4 mg ONCE ONCE IV PUSH ; Start 03/31/17 at 16: 15; Stop 03/31/17 at 16:24; Status DC Morphine Sulfate (Morphine Inj) 4 mg ONCE ONCE IV PUSH Last administered on t 17:12; Start 03/31/17 at 16:30; Stop 03/31/17 at 16:31; Status DC Lidocaine HCl 50 ml 50 ml ONCE ONCE INFIL ; Start 03/31/17 at 16:45; Stop 03/31 at 16:46; Status DC Vancomycin HCl 650 mg/Sodium Chloride 256.5 ml @ 250 mls/hr ONCE ONCE IV ; Start 03/31/17 at 18:30; Stop 03/31/17 at 18:49; Status DC Cefepime HCl/ Sodium Chloride (Maxipime Inj/NS Inj) 100 ml @ 200 mls/hr ONCE ONCE IV ; Start 03/31/17 at 18:30; Stop 03/31/17 at 18:49; Status DC Sodium Chloride 2 ml 2 ml BID IV FLUSH Last administered on 04/02/17 11:54; Start 03/31/17 at 21:00 Vancomycin HCl 1000 mg/Sodium Chloride 250 ml @ 250 mls/hr ONCE ONCE IV Last administered on 04/01/17 02:42; Start 03/31/17 at 21:00; Stop 03/31/17 at 21:59 ; Status DC Cefazolin Sodium/ Dextrose (Ancef 2 Gm Premix) 50 ml @ 100 mls/hr ONCE ONCE IV Last administered on 04/01/17 02:43; Start 03/31/17 at 21:00; Stop at 21:36; Status DC Hydromorphone HCl (Dilaudid Pf Inj) 0.2 mg Q4H PRN IV PUSH pain 6-10 Last administered on 04/01/17 11:00; Start 03/31/17 at 23:30; Stop 04/01/17 at 13:45 ; Status DC Prednisone (Deltasone) 60 mg DAILY PO Last administered on 04/02/17 11:52; Start 04/01/17 at 09:00 Atovaquone (Mepron Liq) 1,500 mg DAILY PO Last administered on 04/02/17 11:53 ; Start 04/01/17 at 09:00 Clonidine (Catapres) 0.1 mg DAILY PO Last administered on 04/02/17 11:54; Start 04/01/17 at 09:00 Non-Formulary Medication 1 tab DAILY PO ; Start 04/01/17 at 09:00; Status Cancel Pantoprazole Sodium (Protonix Inj) 40 mg Q12H IV PUSH Last administered on 04/02 11:51; Start 04/01/17 at 09:00 Abacavir Sulfate (Ziagen) 600 mg DAILY PO Last administered on 04/02/17 11:51 ; Start 04/01/17 at 09:00 Lamivudine (Epivir) 300 mg DAILY PO Last administered on 04/02/17 11:52; Start 04/01/17 at 09:00 Acetaminophen/ Hydrocodone Bitart ([place] 5-325 Mg) 1 tab Q4H PRN PO pain 1-7; Start 04/01/17 at 13:45 Acetaminophen/ Hydrocodone Bitart ([place] 5-325 Mg) 2 tab Q4H PRN PO pain 8-10 Last administered on 04/01/17 19:57; Start 04/01/17 at 13:45 Allopurinol 100 mg 100 mg DAILY PO Last administered on 04/02/17 11:52; Start 04/01/17 at 16:00 Sodium Chloride (NS 1000 ml Inj) 1,000 ml @ 70 mls/hr [id number] IV ; Start at 13:30 A/P Problem List: (1) Septic joint of right knee joint ICD Code: M00.9 Status: Acute (2) Acute kidney injury ICD Code: N17.9 Status: Acute (3) HIV disease ICD Code: B20 Status: Chronic (4) HTN (hypertension) ICD Code: I10 Status: Chronic Assessment and Plan 71 y/o female with a history HTN, CKD, CHF, and HIV presented to the ED with complaints of swelling and pain in her right knee. Gouty arthritis -Knee xray reviewed and shows Unremarkable limited examination of the right knee. Marked soft tissue swelling overlying the suprapatellar region -Synovial aspirations positive for uric acid. Fluid culture negative. -Orthopedics consulted no indication for any procedure. -Patient doing well on prednisone. Continue her prednisone. She is also on allopurinol. Acute Kidney injury on CKD stage 3, creatine 2.7, baseline 1.8 -Creatinine continues to increase. Rate now is 3.4. Order for strict I/O was place, but it is not being documented. Per patient she does have good urine output. -Avoid nephrotoxins. -Patient does look dehydrated. Will give IV fluids at 70 cc/h. Consult site damage prevention technician. Continue to monitor clinically closely. HTN, chronic -Cont home medication clonidine, hold lisinopril for now due to ROXANNA HIV, chronic -Continue with home medication. DVT prophylaxis: SCDs GI prophylaxis: Protonix Discharge Planning Due to worsening of kidney function patient needs continuous monitoring Problem Qualifiers (1) Septic joint of right knee joint: Qualified Code: M00.9 - Pyogenic arthritis of right knee joint, due to unspecified organism Jayshree Knott MD Apr 02, 2017 14:09
[2017-04-02] MEDS: SODIUM CHLOR 0.9% 1000 ML INJ 1,000 ML IV SCH (14:19)
--- NOTE | 2017-04-02 16:55 | PD.CONS ---
[facility] Service Nephrology Consult Requested By Reason for Consult Acute on CKD Primary Care Physician Storm Taylor MD History of Present Illness This is a 71 y/o AAF patient admitted for right knee pain on 03/31. She had a needle aspiration and was evaluated by orthopedics, diagnosed with gouty arthritis, she was placed on prednisone and allopurinol. Her creatinine was 2.7 on arrival, increased to 2.9, and is 3.4 today. She does not recall hx of CKD. PMH of HTN, HIV, and CHF, she is maintained on HAART. We were consulted today for renal management. She denies use of NSAIDs prior to admission, and is a full code . IVF has been ordered and is infusing. (Deonna Barber) Review of Systems Constitutional: DENIES: Fatigue, Fever Musculoskeletal: COMPLAINS OF: Joint pain, DENIES: Muscle aches Integumentary: DENIES: Rash Immunologic/allergic: DENIES: Eczema (Deonna Barber) Past Family Social History Allergies: Coded Allergies: No Known Allergies (Unverified , 03/07/15) Past Medical History HTN CKD 3, baseline creatinine 1.5-1.6 from 2015 CHF HIV on HAART Past Surgical History cesarian x 2 Reported Medications Mepron Liq (Atovaquone) 750 Mg/5 Ml Susp 1,500 Mg PO DAILY Take with food. Triumeq (Zwhseqil-Emhnwahlzaff-Qqrkdbsffh) 600-50-300 Mg Tab 1 Tab PO DAILY Hazardous agent; use appropriate precautions for handling & disposal. Clonidine (Clonidine HCl) 0.1 Mg Tab 0.1 Mg PO DAILY Lisinopril 40 Mg Tab 40 Mg PO DAILY Active Ordered Medications Current Medications Medications (Trade) Dose Ordered Sig/Caity Route Start Time Stop Time Status Last Admin (NS Flush) 2 ml BID IV FLUSH 03/31/17 21:00 04/02/17 11:54 (Deltasone) 60 mg DAILY PO 04/01/17 09:00 04/02/17 11:52 (Mepron Liq) 1,500 mg DAILY PO 04/01/17 09:00 04/02/17 11:53 (Catapres) 0.1 mg DAILY PO 04/01/17 09:00 04/02/17 11:54 (Protonix Inj) 40 mg Q12H IV PUSH 04/01/17 09:00 04/02/17 11:51 (Ziagen) 600 mg DAILY PO 04/01/17 09:00 04/02/17 11:51 (Epivir) 300 mg DAILY PO 04/01/17 09:00 04/02/17 11:52 ([place] 5-325 Mg) 1 tab Q4H PRN PO 04/01/17 13:45 ([place] 5-325 Mg) 2 tab Q4H PRN PO 04/01/17 13:45 04/01/17 19:57 Allopurinol 100 mg 100 mg DAILY PO 04/01/17 16:00 04/02/17 11:52 (NS 1000 ml Inj) 1,000 ml @ 70 mls/hr [id number] IV 04/02/17 13:30 04/02/17 14:19 Family History No hx of renal disorders Social History no smoking lives with daughter unemployed independent with ADLs full code (Deonna Barber) Physical Exam Vital Signs Vital Signs Date Time Temp Pulse Resp B/P Pulse Ox O2 Delivery O2 Flow Rate FiO2 04/02/17 12:00 97.8 73 16 164/88 96 04/02/17 08:00 68 04/02/17 08:00 97.8 77 16 175/97 95 04/02/17 04:29 97.8 75 16 136/83 97 04/01/17 23:33 97.5 72 16 124/78 97 04/01/17 21:20 18 04/01/17 19:28 98.2 86 18 104/64 97 04/01/17 19:23 105 Physical Exam GENERAL: This is a well-nourished, well-developed AAF patient, in no apparent distress. SKIN: No rashes, ecchymoses or lesions. Cool and dry. Right knee warm to touch. HEAD: Atraumatic. Normocephalic. EYES: Pupils equal round and reactive. Extraocular motions intact. ENT: Nose without bleeding, purulent drainage or septal hematoma. Airway patent. NECK: Trachea midline. No JVD or lymphadenopathy. CARDIOVASCULAR: Regular rate and rhythm without murmurs, gallops, or rubs. No ectopy, RESPIRATORY: Clear to auscultation in all lobes. Breath sounds are equal bilaterally. No wheezes, rales, or rhonchi. GASTROINTESTINAL: Abdomen soft, is non-tender, nondistended. No hepato- splenomegaly, or palpable masses. No guarding. MUSCULOSKELETAL: Right knee some edematous and slightly tender to touch. bandage in place s/p aspiration without drainage . No calf tenderness. NEUROLOGICAL: Awake and alert. Motor and sensory grossly within normal limits. Normal speech. Laboratory Laboratory Tests Test 04/01/17 04/02/17 21:18 12:17 Sodium Level 137 136 Potassium Level 4.8 5.0 Chloride Level 108 108 Carbon Dioxide Level 17.9 14.8 Anion Gap 11 13 Blood Urea Nitrogen 58 65 Creatinine 2.93 3.42 Estimat Glomerular Filtration 19 16 Rate Random Glucose 201 141 Calcium Level 9.0 9.9 Date/Time Procedure Status Source Growth 03/31/17 21:40 Gram Stain - Final Resulted Fluid Synovial Fluid 03/31/17 21:40 Body Fluid Culture - Preliminary Resulted Fluid Synovial Fluid NO GROWTH IN 48 HOURS. 03/31/17 16:40 Aerobic Blood Culture - Preliminary Resulted Blood Peripheral NO GROWTH IN 2 DAYS 03/31/17 16:40 Anaerobic Blood Culture - Preliminary Resulted Blood Peripheral NO GROWTH IN 2 DAYS (Deonna Barber) Result Diagram: 03/31/17 1635 04/02/17 1217 Imaging Last Impressions Knee X-Ray 03/31/17 0000 Signed Impressions: Service Date/Time: Friday, March 31, 2017 16:54 - CONCLUSION: Unremarkable limited examination of the right knee. Marked soft tissue swelling overlying the suprapatellar region Brody Odonnell MD Hip and Pelvis X-Ray 03/31/17 0000 Signed Impressions: Service Date/Time: Friday, March 31, 2017 16:54 - CONCLUSION: Unremarkable examination of the right hip. Brody Odonnell MD (Deonna Barber) Assessment and Plan Problem List: (1) Acute kidney injury Plan: in a patient with CKD 3 per history, baseline form 2014 creatinine 1.5- 1.6, GFR 39-41 blood pressure was in 200s on arrival, later systolic recorded in low 100s, may have suffered renal hyperperfusion; may have progressed to ATN creatinine continuing to rise, her K is normal she is non oliguric obtain UA for analysis, obtain renal US to look for obstruction IVF has been ordered, this can continue overnight, reevaluate tomorrow avoid NSAIDs, she was ordered ketorolac but it was not given repeat renal panel in am (2) Gout attack Plan: confirmed with needle aspiration placed on allopurinol and prednisone monitor clinically (3) Hypertension Plan: monitor blood pressure, on clonidine currently home MARIEL was not restarted (4) HIV disease Plan: on HAART (Deonna Barber) Assessment and Plan patient was seen and examined. She has CKD, at least stage III as baseline. May be HIVAN. UA in 2014 revealed some proteinuria. Repeat UA. ROXANNA could be due to renal hypoperfusion, ATN from infection. On IVF. Monitor. In 2014, she had hydronephrosis bilaterally, that has resolved, but kidney sizes are much smaller. No immediate need for dialysis. Avoid nephrotoxic agents. (Zak Stevens MD) Deonna Barber Apr 02, 2017 16:55 Zak Stevens MD Apr 02, 2017 19:24
--- NOTE | 2017-04-02 17:51 | RADRPT ---
EXAM DATE/TIME: 04/02/2017 17:10 [facility] COMPARISON: US KIDNEY/RENAL/BLADDER, March 08, 2015, 11:12. INDICATIONS : Increased lab values. MEDICAL HISTORY : Congestive heart failure. Hypertension. Head trauma. Right knee pain. Renal failure. Arthritis. SURGICAL HISTORY : section. Right hand surgery. ENCOUNTER: Subsequent ACUITY: 2 days PAIN SCORE: 0/10 LOCATION: Bilateral flank MEASUREMENTS: RIGHT KIDNEY: 8.5 x 4.0 x 3.4 cm LEFT KIDNEY: 7.6 x 3.8 x 4.1 cm FINDINGS: RIGHT KIDNEY: Renal cortex is decreased in thickness and increased in echotexture. No hydronephrosis, stone, or ma ss. LEFT KIDNEY: Renal cortex is decreased in thickness and increased in echotexture. No hydronephrosis, stone, or ma ss. BLADDER: Within normal limits given the degree of distension. CONCLUSION: Both of the kidneys are small and echogenic suspicious for chronic medical renal disease. The hydron ephrosis on the right side has resolved Brody Odonnell MD on April 02, 2017 at 17:48 Board Certified Radiologist. This report was verified electronically.
[2017-04-02 23:54] LABS: TOTAL PROTEIN, SYNOVIAL FLUID 6.3 g/dL (1.0-3.0)
[2017-04-03] VITALS (10 sets, daily range): BP systolic 160–189; BP diastolic 78–103; PULSE 54–80; RESP 16–20; TEMP 95.5–97.5; O2SAT 94–99
[2017-04-03] MEDS: SODIUM CHLOR 0.9% 1000 ML INJ 1,000 ML IV SCH (03:41)
[2017-04-03 07:38] LABS: BACTERIA, URINE OCC /hpf; BLOOD, URINE SMALL (NEG); COMMENT (UR) CULT NOT INDICATED; CULTURE IF INDICATED CULT NOT INDICATED; GLUCOSE,URINE NEG (NEG); KETONE, URINE NEG (NEG); NITRITE,URINE NEG (NEG); SQUAMOUS EPITHELIAL CELL URINE 8 /hpf (0-5); URINE COLOR LIGHT-YELLOW (YELLW/STRAW)
[2017-04-03] MEDS: ALLOPURINOL 100 MG TAB PO SCH (08:24)
[2017-04-03] MEDS: cloNIDine HCL 0.1 MG TAB PO SCH (08:24)
[2017-04-03] MEDS: DOLUTEGRAVIR SODIUM 50 MG TAB PO SCH (08:27)
[2017-04-03] MEDS: ABACAVIR SULFATE 300 MG TAB PO SCH (08:27)
[2017-04-03] MEDS: SODIUM CHLORIDE 0.9% FLUSH 10 ML FLUSH IV FLUSH SCH ×2 (08:28→20:00)
[2017-04-03] MEDS: PANTOPRAZOLE SODIUM 40 MG VIAL IV PUSH SCH (08:28)
[2017-04-03] MEDS: ATOVAQUONE SUSP 750 MG/5 ML UDC PO SCH (08:29)
[2017-04-03] MEDS: predniSONE 20 MG TAB PO SCH (08:29)
[2017-04-03 08:36] LABS: BICARBONATE 17.7 MEQ/L (21.0-32.0); POTASSIUM 4.9 MEQ/L (3.5-5.1)
--- NOTE | 2017-04-03 13:39 | HHI.PR ---
Subjective Remarks f/u for gout and renal failure patient has no complaints. She stated pain is better. Urine output is not recorded because patient does not seem urine. She has incontinence. Per patient's nurse diaper was filled with urine pretty heavy. Objective Vitals Vital Signs Date Time Temp Pulse Resp B/P Pulse Ox O2 Delivery O2 Flow Rate FiO2 04/03/17 12:00 95.6 80 18 167/81 94 04/03/17 09:12 97.2 66 18 96 04/03/17 08:30 79 04/03/17 08:22 160/ 160/78 04/03/17 04:02 97.5 70 16 170/103 99 04/02/17 23:55 97.0 65 18 168/87 96 04/02/17 22:52 65 04/02/17 19:21 96.5 73 17 136/81 95 04/02/17 16:00 97.5 66 18 139/84 96 I/O 04/02/17 04/02/17 04/02/17 04/03/17 04/03/17 04/03/17 07:00 15:00 23:00 07:00 15:00 23:00 Intake Total 50 ml 240 ml 300 ml 480 ml Balance 50 ml 240 ml 300 ml 480 ml Intake Oral 50 ml 240 ml 480 ml IV Total 300 ml # Voids 2 1 Result Diagram: 03/31/17 1635 04/03/17 0705 Imaging Last Impressions Renal Ultrasound 04/02/17 0000 Signed Impressions: Service Date/Time: March 17:10 - CONCLUSION: Both of the kidneys are small and echogenic suspicious for chronic medical renal disease. The hydronephrosis on the right side has resolved Brody Odonnell MD Knee X-Ray 03/31/17 0000 Signed Impressions: Service Date/Time: Friday, March 31, 2017 16:54 - CONCLUSION: Unremarkable limited examination of the right knee. Marked soft tissue swelling overlying the suprapatellar region Brody Odonnell MD Hip and Pelvis X-Ray 03/31/17 0000 Signed Impressions: Service Date/Time: Friday, March 31, 2017 16:54 - CONCLUSION: Unremarkable examination of the right hip. Brody Odonnell MD Objective Remarks GENERAL: in NAD CARDIOVASCULAR: Regular rate and rhythm without murmurs, gallops, or rubs. RESPIRATORY: Breath sounds equal bilaterally. No accessory muscle use. GASTROINTESTINAL: Abdomen soft, non-tender, nondistended. MUSCULOSKELETAL: right knee with mild swelling. no erythema noted. Medications and IVs Current Medications Ketorolac Tromethamine (Toradol Inj) 30 mg ONCE ONCE IM ; Start 03/31/17 at 16: 00; Stop 03/31/17 at 16:07; Status DC Morphine Sulfate (Morphine Inj) 4 mg ONCE ONCE IV PUSH ; Start 03/31/17 at 16: 15; Stop 03/31/17 at 16:24; Status DC Morphine Sulfate (Morphine Inj) 4 mg ONCE ONCE IV PUSH Last administered on 17:12; Start 03/31/17 at 16:30; Stop 03/31/17 at 16:31; Status DC Lidocaine HCl 50 ml 50 ml ONCE ONCE INFIL ; Start 03/31/17 at 16:45; Stop 03/31 at 16:46; Status DC Vancomycin HCl 650 mg/Sodium Chloride 256.5 ml @ 250 mls/hr ONCE ONCE IV ; Start 03/31/17 at 18:30; Stop 03/31/17 at 18:49; Status DC Cefepime HCl/ Sodium Chloride (Maxipime Inj/NS Inj) 100 ml @ 200 mls/hr ONCE ONCE IV ; Start 03/31/17 at 18:30; Stop 03/31/17 at 18:49; Status DC Sodium Chloride 2 ml 2 ml BID IV FLUSH Last administered on 04/02/17 21:38; Start 03/31/17 at 21:00 Vancomycin HCl 1000 mg/Sodium Chloride 250 ml @ 250 mls/hr ONCE ONCE IV Last administered on 04/01/17 02:42; Start 03/31/17 at 21:00; Stop 03/31/17 at 21:59 ; Status DC Cefazolin Sodium/ Dextrose (Ancef 2 Gm Premix) 50 ml @ 100 mls/hr ONCE ONCE IV Last administered on 04/01/17 02:43; Start 03/31/17 at 21:00; Stop at 21:36; Status DC Hydromorphone HCl (Dilaudid Pf Inj) 0.2 mg Q4H PRN IV PUSH pain 6-10 Last administered on 04/01/17 11:00; Start 03/31/17 at 23:30; Stop 04/01/17 at 13:45 ; Status DC Prednisone (Deltasone) 60 mg DAILY PO Last administered on 04/03/17 08:29; Start 04/01/17 at 09:00 Atovaquone (Mepron Liq) 1,500 mg DAILY PO Last administered on 04/03/17 08:29 ; Start 04/01/17 at 09:00 Clonidine (Catapres) 0.1 mg DAILY PO Last administered on 04/03/17 08:24; Start 04/01/17 at 09:00 Non-Formulary Medication 1 tab DAILY PO ; Start 04/01/17 at 09:00; Status Cancel Pantoprazole Sodium (Protonix Inj) 40 mg Q12H IV PUSH Last administered on 04/03 08:28; Start 04/01/17 at 09:00 Abacavir Sulfate (Ziagen) 600 mg DAILY PO Last administered on 04/03/17 08:27 ; Start 04/01/17 at 09:00 Lamivudine (Epivir) 300 mg DAILY PO Last administered on 04/03/17 08:25; Start 04/01/17 at 09:00 Acetaminophen/ Hydrocodone Bitart ([place] 5-325 Mg) 1 tab Q4H PRN PO pain 1-7; Start 04/01/17 at 13:45 Acetaminophen/ Hydrocodone Bitart ([place] 5-325 Mg) 2 tab Q4H PRN PO pain 8-10 Last administered on 04/01/17 19:57; Start 04/01/17 at 13:45 Allopurinol 100 mg 100 mg DAILY PO Last administered on 04/03/17 08:24; Start 04/01/17 at 16:00 Sodium Chloride (NS 1000 ml Inj) 1,000 ml @ 70 mls/hr [id number] IV Last administered on 04/03/17 03:41; Start 04/02/17 at 13:30 A/P Problem List: (1) Septic joint of right knee joint ICD Code: M00.9 Status: Acute (2) Acute kidney injury ICD Code: N17.9 Status: Acute (3) HIV disease ICD Code: B20 Status: Chronic (4) HTN (hypertension) ICD Code: I10 Status: Chronic Assessment and Plan 71 y/o female with a history HTN, CKD, CHF, and HIV presented to the ED with complaints of swelling and pain in her right knee. Gouty arthritis -Knee xray reviewed and shows unremarkable limited examination of the right knee. Marked soft tissue swelling overlying the suprapatellar region -Synovial aspirations positive for uric acid. Fluid culture negative. -Orthopedics consulted no indication for any procedure. -Patient doing well on prednisone. Continue her prednisone. She is also on allopurinol. Acute Kidney injury on CKD stage 3, on admission creatine 2.7, baseline 1.8 -Creatinine continues to increase. Rate now is 3.6. Strict ins and outs ordered but has not been documented since patient has incontinence. d/w patient and nurse and asked patient if she can use bed green. Patient agreed. -Avoid nephrotoxins. -continue with IV fluids at 70 cc/h and continue to monitor. -International Sales Representative following. HTN, chronic -Cont home medication clonidine, hold lisinopril for now due to ROXANNA HIV, chronic -Continue with home medication. DVT prophylaxis: SCDs GI prophylaxis: Protonix Discharge Planning Due to worsening of kidney function patient needs continuous monitoring Problem Qualifiers (1) Septic joint of right knee joint: Qualified Code: M00.9 - Pyogenic arthritis of right knee joint, due to unspecified organism Jayshree Knott MD Apr 03, 2017 13:39
--- NOTE | 2017-04-03 15:32 | HHI.NPPN ---
Subjective Renal Failure: Chronic, Acute Interval History Her renal function is worse today. She has no complaints. (Deonna Barber) Objective Data Data 04/02/17 04/03/17 19:00 07:00 Intake Total 240 ml 300 ml Balance 240 ml 300 ml Intake Oral 240 ml IV Total 300 ml # Voids 2 Vital Signs Date Time Temp Pulse Resp B/P Pulse Ox O2 Delivery O2 Flow Rate FiO2 04/03/17 12:00 95.6 80 18 167/81 94 04/03/17 09:12 97.2 66 18 96 04/03/17 08:30 79 04/03/17 08:22 160/ 160/78 04/03/17 04:02 97.5 70 16 170/103 99 04/02/17 23:55 97.0 65 18 168/87 96 04/02/17 22:52 65 04/02/17 19:21 96.5 73 17 136/81 95 04/02/17 16:00 97.5 66 18 139/84 96 (Deonna Barber) -: 03/31/17 1635 04/03/17 0705 Imaging Last 72 hours Impressions Renal Ultrasound 04/02/17 0000 Signed Impressions: Service Date/Time: March 17:10 - CONCLUSION: Both of the kidneys are small and echogenic suspicious for chronic medical renal disease. The hydronephrosis on the right side has resolved Brody Odonnell MD (Deonna Barber) Physical Exam General Appearance: Well Developed, Well Nourished, Comfortable (Deonna Barber) Eyes Eye Exam: Pupils Equal (Deonna Barber) Throat Throat Exam: Oral Mucosa [place] & Moist (Deonna Barber) Neck Neck Exam: Neck Supple (Deonna Barber) Pulmonary Resp Exam: Clear Bilaterally, Breath Sounds Equal (Deonna Barber) Cardiology CV Exam: Regular, Normal Sinus Rhythm, Good Perfusion (Deonna Barber) Gastrointestinal/Abdomen GI Exam: Soft, Non-Tender, Bowel Sounds Present (Deonna Barber) Musculoskeletal MS Exam: Joints Intact, Normal Gait, Normal Tone, Good Strength (Deonna Barber) Integumentary Skin Exam: Warm, Dry, Intact (Deonna Barber) Extremeties Extremities Exam: No Edema, Pedal Pulses Palpable (Deonna Barber) Neurologic Neuro Exam: Alert, Awake, Oriented, Speech Clear, Moving All Extremities ( Deonna Barber) Psychiatric Psych Exam: Appropriate Responses (Deonna Barber) Assessment/Plan Discussed Condition With: Patient Assessment Summary: ROXANNA/Acute Renal Failure, Proteinuria, Hypertension, CKD Stage III Problem List: (1) Acute kidney injury Plan: in a patient with CKD 3 per history, baseline from 2014 creatinine 1.5- 1.6, GFR 39-41 may have underlying HIVAN ROXANNA thought to be due to renal hyperperfusion, possible ATN renal function has worsened she is non oliguric, incontinent stop IVF, she is eating/drinking without difficulty obtain serologies, complement levels repeat renal panel in AM stop all non essential medications, I will D/C Protonix it is possible her HAART may be contributing if no improvement, consider renal biopsy next week; however her US shows atrophic kidneys therefore may pose greater risk to the patient; follow renal function over the weekend avoid NSAIDs (2) Gout attack Plan: confirmed with needle aspiration placed on allopurinol and prednisone monitor clinically (3) Hypertension Plan: monitor blood pressure, on clonidine currently home MARIEL was not restarted (4) HIV disease Plan: on HAART (Deonna Barber) Plan patient was seen and examined. Renal function has worsened in spite of IVF. Obtain protein/creatine ratio. Order serologies. Discontinue IVF. Biopsy can be considered, however her kidney sizes are small, diagnostic yield of the biopsy will be low. (Zak Stevens MD) Deonna Barber Apr 03, 2017 15:32 Zak Stevens MD Apr 03, 2017 21:06
[2017-04-03] MEDS: ACETAMINOPHEN/HYDROcodone 325 MG/5 MG TAB PO PRN (20:01)
[2017-04-04] VITALS (11 sets, daily range): BP systolic 148–200; BP diastolic 80–100; PULSE 52–68; RESP 17–20; TEMP 97.4–98.4; O2SAT 95–97
[2017-04-04] MEDS: ACETAMINOPHEN/HYDROcodone 325 MG/5 MG TAB PO PRN ×2 (04:08→15:09)
[2017-04-04 06:07] LABS: BICARBONATE 17.6 MEQ/L (21.0-32.0); POTASSIUM 4.8 MEQ/L (3.5-5.1)
[2017-04-04] MEDS: SODIUM CHLORIDE 0.9% FLUSH 10 ML FLUSH IV FLUSH SCH ×2 (08:35→19:50)
[2017-04-04] MEDS: ABACAVIR SULFATE 300 MG TAB PO SCH (08:36)
[2017-04-04] MEDS: DOLUTEGRAVIR SODIUM 50 MG TAB PO SCH (08:36)
[2017-04-04] MEDS: amLODIPine BESYLATE 5 MG TAB PO SCH (08:36)
[2017-04-04] MEDS: predniSONE 20 MG TAB PO SCH (08:36)
[2017-04-04] MEDS: cloNIDine HCL 0.1 MG TAB PO SCH (08:36)
[2017-04-04] MEDS: ATOVAQUONE SUSP 750 MG/5 ML UDC PO SCH (08:36)
[2017-04-04] MEDS: ALLOPURINOL 100 MG TAB PO SCH (08:37)
--- NOTE | 2017-04-04 09:55 | HHI.PR ---
Subjective Remarks Follow up for gout flare and acute renal failure. The patient reports continued improvement of the right knee pain and swelling, however still with limited knee range of motion secondary to pain. Denies fevers/chills. The patient reports good urine output overnight and today. Denies any dysuria. The patient has no other medical complaints at this time. Objective Vitals Vital Signs Date Time Temp Pulse Resp B/P Pulse Ox O2 Delivery O2 Flow Rate FiO2 04/04/17 08:36 52 04/04/17 08:11 98.0 60 18 180/100 95 04/04/17 05:25 176/86 04/04/17 04:56 195/95 04/04/17 03:59 97.4 62 17 200/100 96 04/03/17 23:45 96.7 71 17 189/81 95 04/03/17 21:47 54 04/03/17 19:46 96.7 59 17 184/100 97 04/03/17 16:00 95.5 71 20 177/85 97 04/03/17 16:00 66 04/03/17 12:45 67 04/03/17 12:00 95.6 80 18 167/81 94 I/O 04/03/17 04/03/17 04/03/17 04/04/17 04/04/17 04/04/17 07:00 15:00 23:00 07:00 15:00 23:00 Intake Total 480 ml 240 ml Balance 480 ml 240 ml Intake Oral 480 ml 240 ml # Voids 1 2 Result Diagram: 03/31/17 1635 04/04/17 0520 Imaging Last Impressions Renal Ultrasound 04/02/17 0000 Signed Impressions: Service Date/Time: March 17:10 - CONCLUSION: Both of the kidneys are small and echogenic suspicious for chronic medical renal disease. The hydronephrosis on the right side has resolved Brody Odonnell MD Knee X-Ray 03/31/17 0000 Signed Impressions: Service Date/Time: Friday, March 31, 2017 16:54 - CONCLUSION: Unremarkable limited examination of the right knee. Marked soft tissue swelling overlying the suprapatellar region Brody Odonnell MD Hip and Pelvis X-Ray 03/31/17 0000 Signed Impressions: Service Date/Time: Friday, March 31, 2017 16:54 - CONCLUSION: Unremarkable examination of the right hip. Brody Odonnell MD Objective Remarks GENERAL: Well-nourished, well-developed pleasant elderly female patient in [facility]. SKIN: Warm and dry. No rash. HEENT: Normocephalic. Atraumatic. Pupils equal and round. Mucous membranes pink and moist. NECK: Supple. Trachea midline. CARDIOVASCULAR: Regular rate and rhythm. S1, S2 noted. No murmur appreciated. RESPIRATORY: No accessory muscle use. Clear to auscultation. Breath sounds equal bilaterally. GASTROINTESTINAL: Abdomen soft, non-tender, nondistended. Normoactive bowel sounds x4. MUSCULOSKELETAL: No obvious deformities. Extremities without clubbing, cyanosis , or edema. Right anterior knee with mild edema and warmth, no erythema/ induration; limited ROM right knee secondary to pain. NEUROLOGICAL: Awake and alert. No obvious cranial nerve deficits. Moves all extremities spontaneously. Normal speech. PSYCHIATRIC: Appropriate mood and affect; insight and judgment normal. Medications and IVs Current Medications Medications (Trade) Dose Ordered Sig/Caity Route Start Time Stop Time Status Last Admin (NS Flush) 2 ml BID IV FLUSH 03/31/17 21:00 04/04/17 08:35 (Deltasone) 60 mg DAILY PO 04/01/17 09:00 04/04/17 08:36 (Mepron Liq) 1,500 mg DAILY PO 04/01/17 09:00 04/04/17 08:36 (Catapres) 0.1 mg DAILY PO 04/01/17 09:00 04/04/17 08:36 (Ziagen) 600 mg DAILY PO 04/01/17 09:00 04/04/17 08:36 (Epivir) 300 mg DAILY PO 04/01/17 09:00 04/04/17 08:36 ([place] 5-325 Mg) 1 tab Q4H PRN PO 04/01/17 13:45 04/03/17 20:01 ([place] 5-325 Mg) 2 tab Q4H PRN PO 04/01/17 13:45 04/04/17 04:08 (Zyloprim) 100 mg DAILY PO 04/01/17 16:00 04/04/17 08:37 (Norvasc) 5 mg DAILY PO 04/04/17 09:00 04/04/17 08:36 A/P Problem List: (1) Septic joint of right knee joint ICD Code: M00.9 Status: Acute (2) Acute kidney injury ICD Code: N17.9 Status: Acute (3) HIV disease ICD Code: B20 Status: Chronic (4) HTN (hypertension) ICD Code: I10 Status: Chronic Assessment and Plan 71 y/o female with a history HTN, CKD, CHF, and HIV presented to the ED with complaints of swelling and pain in her right knee. Gouty arthritis -Knee xray reviewed and shows unremarkable limited examination of the right knee. Marked soft tissue swelling overlying the suprapatellar region -Synovial aspirations positive for uric acid. Fluid culture negative. -Orthopedics consulted, no indication for any procedure. -Patient doing well on prednisone, will continue. She is also on allopurinol. -PT recommending [facility], case management to arrange prior to discharge Acute Kidney injury on CKD stage 3, on admission creatine 2.7, baseline 1.8. -Creatinine increased to 3.6. -Renal U/S shows small echogenic kidneys consistent with chronic medical renal disease -Strict Is&Os ordered however patient incontinent, RN and patient report good urine output in diaper. -Avoid nephrotoxins. -Given IVF, now discontinued by nephrology -Cr 3.04 today, slightly improved -Well Services Operator following, appreciate recommendations HTN, chronic -Cont home medication clonidine -held lisinopril for now due to ROXANNA -started on Norvasc 5mg daily HIV, chronic -Continue with home medications -outpatient f/up with ID DVT prophylaxis: SCDs GI prophylaxis: Protonix Discharge Planning Pending clearance by nephrology. Attending Statement The exam, history, and the medical decision-making described in the above note were completed with the assistance of the mid-level provider. I reviewed and agree with the findings presented. I attest that I had a [id number] encounter with the patient on the same day, and personally performed and documented my assessment and findings in the medical record. Problem Qualifiers (1) Septic joint of right knee joint: Qualified Code: M00.9 - Pyogenic arthritis of right knee joint, due to unspecified organism Diana Gutierrez PA-C Apr 04, 2017 09:55 Matt Barth MD Apr 04, 2017 17:59
--- NOTE | 2017-04-04 14:46 | HHI.NPPN ---
Subjective Renal Failure: Chronic, Acute Additional Remarks Patient is alert, started eating better, not in distress. Objective Data Data 04/03/17 04/04/17 18:59 06:59 Intake Total 720 ml Balance 720 ml Intake Oral 720 ml # Voids 3 Vital Signs Date Time Temp Pulse Resp B/P Pulse Ox O2 Delivery O2 Flow Rate FiO2 04/04/17 12:35 98.2 60 20 180/80 96 04/04/17 08:36 52 04/04/17 08:11 98.0 60 18 180/100 95 04/04/17 05:25 176/86 04/04/17 04:56 195/95 04/04/17 03:59 97.4 62 17 200/100 96 04/03/17 23:45 96.7 71 17 189/81 95 04/03/17 21:47 54 04/03/17 19:46 96.7 59 17 184/100 97 04/03/17 16:00 95.5 71 20 177/85 97 04/03/17 16:00 66 -: 03/31/17 1635 04/04/17 0520 Physical Exam General Appearance: Well Developed, Well Nourished, Comfortable Eyes Eye Exam: Pupils Equal Throat Throat Exam: Oral Mucosa [place] & Moist Neck Neck Exam: Neck Supple Pulmonary Resp Exam: Clear Bilaterally, Breath Sounds Equal Cardiology CV Exam: Regular, Normal Sinus Rhythm, Good Perfusion Gastrointestinal/Abdomen GI Exam: Soft, Non-Tender, Bowel Sounds Present Musculoskeletal MS Exam: Joints Intact, Normal Gait, Normal Tone, Good Strength Integumentary Skin Exam: Warm, Dry, Intact Extremeties Extremities Exam: Trace Edema Neurologic Neuro Exam: Alert, Awake, Oriented, Speech Clear, Moving All Extremities Psychiatric Psych Exam: Appropriate Responses Assessment/Plan Discussed Condition With: Patient Assessment Summary: ROXANNA/Acute Renal Failure, Proteinuria, Hypertension, CKD Stage III Problem List: (1) Acute kidney injury Plan: Patient with CKD 3 per history, baseline from 2014 creatinine 1.5-1.6, GFR 39-41 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 ROXANNA thought to be due to renal hyperperfusion, possible ATN she is non oliguric, incontinent Creatinine is slightly better. Serology so far negative. Her kidneys are small and has minimal proteinuria. (2) Gout attack Plan: confirmed with needle aspiration placed on allopurinol and prednisone monitor clinically (3) Hypertension Plan: monitor blood pressure, on clonidine currently home MARIEL was not restarted (4) HIV disease Plan: on HAART Plan patient was seen and examined. Renal function has worsened in spite of IVF. Obtain protein/creatine ratio. Order serologies. Discontinue IVF. Biopsy can be considered, however her kidney sizes are small, diagnostic yield of the biopsy will be low. Sherie Alejandro MD Apr 04, 2017 14:46
[2017-04-05 05:00] VITALS: BP 192/96; PULSE 70; RESP 18; TEMP 98.1; O2SAT 97
[2017-04-05 05:53] LABS: POTASSIUM 5.2 MEQ/L (3.5-5.1)
[2017-04-05] MEDS: ACETAMINOPHEN/HYDROcodone 325 MG/5 MG TAB PO PRN (06:06)
[2017-04-05 08:00] VITALS: PULSE 60
[2017-04-05 08:16] VITALS: BP 180/90; PULSE 78; RESP 20; TEMP 98; O2SAT 96
[2017-04-05] MEDS: ABACAVIR SULFATE 300 MG TAB PO SCH (08:33)
[2017-04-05] MEDS: ATOVAQUONE SUSP 750 MG/5 ML UDC PO SCH (08:33)
[2017-04-05] MEDS: SODIUM CHLORIDE 0.9% FLUSH 10 ML FLUSH IV FLUSH SCH (08:33)
[2017-04-05] MEDS: amLODIPine BESYLATE 5 MG TAB PO SCH (08:34)
[2017-04-05] MEDS: ALLOPURINOL 100 MG TAB PO SCH (08:34)
[2017-04-05] MEDS: predniSONE 20 MG TAB PO SCH (08:34)
[2017-04-05] MEDS: cloNIDine HCL 0.1 MG TAB PO SCH (08:34)
[2017-04-05] MEDS: DOLUTEGRAVIR SODIUM 50 MG TAB PO SCH (08:34)
[2017-04-05] MEDS ORDERED: amLODIPine BESYLATE 5 MG TAB PO ONE (08:45)
[2017-04-05] MEDS ORDERED: AMLO10 PO (08:58)
[2017-04-05] MEDS ORDERED: predniSONE 20 MG TAB PO SCH (09:00)
--- NOTE | 2017-04-05 10:25 | HHI.PR ---
Subjective Remarks Follow up for gout flare and acute renal failure. The patient reports feeling better again today. She states she slept well. Right knee pain improvement. Denies fevers/chills. She wants to go home. Objective Vitals Vital Signs Date Time Temp Pulse Resp B/P Pulse Ox O2 Delivery O2 Flow Rate FiO2 04/05/17 08:16 98.0 78 20 180/90 96 04/05/17 05:00 98.1 70 18 192/96 97 04/04/17 23:46 98.4 67 18 184/91 97 04/04/17 21:55 54 04/04/17 19:51 98.4 68 18 179/88 97 04/04/17 16:33 98.2 62 18 148/80 96 04/04/17 15:15 58 04/04/17 12:35 98.2 60 20 180/80 96 I/O 04/04/17 04/04/17 04/04/17 04/05/17 04/05/17 04/05/17 07:00 15:00 23:00 07:00 15:00 23:00 Intake Total 368 ml Balance 368 ml Intake Oral 368 ml Result Diagram: 04/05/17 0345 Imaging Last Impressions Renal Ultrasound 04/02/17 0000 Signed Impressions: Service Date/Time: March 17:10 - CONCLUSION: Both of the kidneys are small and echogenic suspicious for chronic medical renal disease. The hydronephrosis on the right side has resolved Brody Odonnell MD Knee X-Ray 03/31/17 0000 Signed Impressions: Service Date/Time: Friday, March 31, 2017 16:54 - CONCLUSION: Unremarkable limited examination of the right knee. Marked soft tissue swelling overlying the suprapatellar region Brody Odonnell MD Hip and Pelvis X-Ray 03/31/17 0000 Signed Impressions: Service Date/Time: Friday, March 31, 2017 16:54 - CONCLUSION: Unremarkable examination of the right hip. Brody Odonnell MD Objective Remarks GENERAL: Well-nourished, well-developed pleasant elderly female patient in [facility]. SKIN: Warm and dry. No rash. HEENT: Normocephalic. Atraumatic. Pupils equal and round. Mucous membranes pink and moist. NECK: Supple. Trachea midline. CARDIOVASCULAR: Regular rate and rhythm. S1, S2 noted. No murmur appreciated. RESPIRATORY: No accessory muscle use. Clear to auscultation. Breath sounds equal bilaterally. GASTROINTESTINAL: Abdomen soft, non-tender, nondistended. Normoactive bowel sounds x4. MUSCULOSKELETAL: No obvious deformities. Extremities without clubbing, cyanosis , or edema. Right anterior knee with mild edema and warmth, no erythema/ induration; limited ROM right knee secondary to pain. NEUROLOGICAL: Awake and alert. No obvious cranial nerve deficits. Moves all extremities spontaneously. Normal speech. PSYCHIATRIC: Appropriate mood and affect; insight and judgment normal. Procedures 03/31/17 Right knee joint aspiration done in the ED by Dr. Morejon. Medications and IVs Current Medications Medications (Trade) Dose Ordered Sig/Caity Route Start Time Stop Time Status Last Admin (NS Flush) 2 ml BID IV FLUSH 03/31/17 21:00 04/05/17 08:33 (Mepron Liq) 1,500 mg DAILY PO 04/01/17 09:00 04/05/17 08:33 (Catapres) 0.1 mg DAILY PO 04/01/17 09:00 04/05/17 08:34 (Ziagen) 600 mg DAILY PO 04/01/17 09:00 04/05/17 08:33 (Epivir) 300 mg DAILY PO 04/01/17 09:00 04/05/17 08:34 ([place] 5-325 Mg) 1 tab Q4H PRN PO 04/01/17 13:45 04/04/17 15:09 ([place] 5-325 Mg) 2 tab Q4H PRN PO 04/01/17 13:45 04/05/17 06:06 (Zyloprim) 100 mg DAILY PO 04/01/17 16:00 04/05/17 08:34 (Norvasc) 10 mg DAILY PO 04/06/17 09:00 (Deltasone) 40 mg DAILY PO 04/05/17 09:00 A/P Problem List: (1) Septic joint of right knee joint ICD Code: M00.9 Status: Acute (2) Acute kidney injury ICD Code: N17.9 Status: Acute (3) HIV disease ICD Code: B20 Status: Chronic (4) HTN (hypertension) ICD Code: I10 Status: Chronic Assessment and Plan 71 y/o female with a history HTN, CKD, CHF, and HIV presented to the ED with complaints of swelling and pain in her right knee. Gouty arthritis -Knee xray reviewed and shows unremarkable limited examination of the right knee. Marked soft tissue swelling overlying the suprapatellar region -Synovial aspirations positive for uric acid. Fluid culture negative. -Orthopedics consulted, no indication for any procedure. -Patient doing well on prednisone, will continue. She is also on allopurinol. -PT recommending [facility], case management to arrange prior to discharge Acute Kidney injury on CKD stage 3, on admission creatine 2.7, baseline 1.8. -Creatinine increased to 3.6. -Renal U/S shows small echogenic kidneys consistent with chronic medical renal disease -Strict Is&Os ordered however patient incontinent, RN and patient report good urine output in diaper. -Avoid nephrotoxins. -Given IVF, now discontinued by nephrology -Cr 2.66 today, improving -Superintendent Meters following, appreciate recommendations HTN, chronic -Cont home medication clonidine -held lisinopril for now due to ROXANNA -started on Norvasc 10mg daily HIV, chronic -Continue with home medications -outpatient f/up with ID DVT prophylaxis: SCDs GI prophylaxis: Protonix Discharge Planning [id number]: Likely discharge today if cleared by nephrology and if blood pressure better controlled. Attending Statement The exam, history, and the medical decision-making described in the above note were completed with the assistance of the mid-level provider. I reviewed and agree with the findings presented. I attest that I had a [id number] encounter with the patient on the same day, and personally performed and documented my assessment and findings in the medical record. Problem Qualifiers (1) Septic joint of right knee joint: Qualified Code: M00.9 - Pyogenic arthritis of right knee joint, due to unspecified organism Diana Gutierrez PA-C Apr 05, 2017 10:25 Matt Barth MD Apr 05, 2017 18:06
[2017-04-05 12:00] VITALS: PULSE 65
[2017-04-05 13:42] VITALS: BP 147/78; PULSE 72; RESP 18; TEMP 97.8; O2SAT 68
--- NOTE | 2017-04-05 14:44 | HHI.NPPN ---
Subjective Renal Failure: Chronic, Acute Additional Remarks Patient is alert, no SOB, no vomiting, eating better. Objective Data Data 04/04/17 04/05/17 19:00 07:00 Intake Total 368 ml Balance 368 ml Intake Oral 368 ml Vital Signs Date Time Temp Pulse Resp B/P Pulse Ox O2 Delivery O2 Flow Rate FiO2 04/05/17 13:42 97.8 72 18 147/78 68 04/05/17 12:03 04/05/17 08:16 98.0 78 20 180/90 96 04/05/17 08:00 60 04/05/17 05:00 98.1 70 18 192/96 97 04/04/17 23:46 98.4 67 18 184/91 97 04/04/17 21:55 54 04/04/17 19:51 98.4 68 18 179/88 97 04/04/17 16:33 98.2 62 18 148/80 96 04/04/17 15:15 58 -: 04/05/17 0345 Physical Exam General Appearance: Well Developed, Well Nourished, Comfortable Eyes Eye Exam: Pupils Equal Throat Throat Exam: Oral Mucosa [place] & Moist Neck Neck Exam: Neck Supple Pulmonary Resp Exam: Clear Bilaterally, Breath Sounds Equal Cardiology CV Exam: Regular, Normal Sinus Rhythm, Good Perfusion Gastrointestinal/Abdomen GI Exam: Soft, Non-Tender, Bowel Sounds Present Musculoskeletal MS Exam: Joints Intact, Normal Gait, Normal Tone, Good Strength Integumentary Skin Exam: Warm, Dry, Intact Extremeties Extremities Exam: Trace Edema Neurologic Neuro Exam: Alert, Awake, Oriented, Speech Clear, Moving All Extremities Psychiatric Psych Exam: Appropriate Responses Assessment/Plan Discussed Condition With: Patient Assessment Summary: ROXANNA/Acute Renal Failure, Proteinuria, Hypertension, CKD Stage III Problem List: (1) Acute kidney injury Plan: Patient with CKD 3 per history, baseline from 2014 creatinine 1.5-1.6, GFR 39-41 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 ROXANNA thought to be due to renal hyperperfusion, possible ATN she is non oliguric, incontinent Creatinine continue to improve. Her kidneys are small and has minimal proteinuria. Complements normal, encourage oral intake. Follow BMP. (2) Gout attack Plan: confirmed with needle aspiration placed on allopurinol and prednisone monitor clinically (3) Hypertension Plan: monitor blood pressure, on clonidine currently home MARIEL was not restarted (4) HIV disease Plan: on HAART Plan patient was seen and examined. Renal function has worsened in spite of IVF. Obtain protein/creatine ratio. Order serologies. Discontinue IVF. Biopsy can be considered, however her kidney sizes are small, diagnostic yield of the biopsy will be low. Sherie Alejandro MD Apr 05, 2017 14:44
[2017-04-05 15:48] VITALS: PULSE 73
[2017-04-05] MEDS ORDERED: cloNIDine HCL 0.1 MG TAB PO PRN (18:15)
--- NOTE | 2017-04-06 11:01 | HHI.DS ---
cc: Sherie Alejandro MD Discharge Summary Admission Date Mar 31, 2017 at 8:21 pm Discharge Date: Apr 05, 2017 Admitting Diagnosis Possible septic joint (1) Gout attack ICD Code: M10.9 Diagnosis: Principal (2) Acute kidney injury ICD Code: N17.9 Diagnosis: Principal (3) HIV disease ICD Code: B20 Diagnosis: Secondary (4) HTN (hypertension) ICD Code: I10 Diagnosis: Secondary (5) CKD (chronic kidney disease), stage IV ICD Code: N18.4 Diagnosis: Secondary Procedures 03/31/17 Right knee joint aspiration done in the ED by Dr. Morejon. Brief History - From Admission 71 y/o female with a history HTN, CKD, CHF, and HIV presented to the ED with complaints of swelling and pain in her right knee. She states the pain and swelling has been going on for 3-4 days. She states it hurts to walk and bend her knee. She does walk with a walker. She denies falling or any trauma to her knee. She states she had fevers at home with unknown temp, and her knee is very warm. She denies any chills, chest pain, sob, nausea, vomiting, or dysuria. CBC/BMP: 04/05/17 1651 Significant Findings Laboratory Tests Test 04/04/17 04/05/17 05:20 03:45 Chloride Level 111 MEQ/L 111 MEQ/L (98-107) (98-107) Carbon Dioxide Level 17.6 MEQ/L 17.0 MEQ/L (21.0-32.0) (21.0-32.0) Blood Urea Nitrogen 74 MG/DL (7-18) 72 MG/DL (7-18) Creatinine 3.04 MG/DL 2.66 MG/DL (0.50-1.00) (0.50-1.00) Estimat Glomerular Filtration 18 ML/MIN (>89) 22 ML/MIN (>89) Rate Random Glucose 128 MG/DL (74-106) Potassium Level 5.2 MEQ/L (3.5-5.1) Imaging Last Impressions Renal Ultrasound 04/02/17 0000 Signed Impressions: Service Date/Time: March 17:10 - CONCLUSION: Both of the kidneys are small and echogenic suspicious for chronic medical renal disease. The hydronephrosis on the right side has resolved Brody Odonnell MD Knee X-Ray 03/31/17 0000 Signed Impressions: Service Date/Time: Friday, March 31, 2017 16:54 - CONCLUSION: Unremarkable limited examination of the right knee. Marked soft tissue swelling overlying the suprapatellar region Brody Odonnell MD Hip and Pelvis X-Ray 03/31/17 0000 Signed Impressions: Service Date/Time: Friday, March 31, 2017 16:54 - CONCLUSION: Unremarkable examination of the right hip. Brody Odonnell MD PE at Discharge GENERAL: Well-nourished, well-developed pleasant elderly female patient in [facility]. SKIN: Warm and dry. No rash. HEENT: Normocephalic. Atraumatic. Pupils equal and round. Mucous membranes pink and moist. NECK: Supple. Trachea midline. CARDIOVASCULAR: Regular rate and rhythm. S1, S2 noted. No murmur appreciated. RESPIRATORY: No accessory muscle use. Clear to auscultation. Breath sounds equal bilaterally. GASTROINTESTINAL: Abdomen soft, non-tender, nondistended. Normoactive bowel sounds x4. MUSCULOSKELETAL: No obvious deformities. Extremities without clubbing, cyanosis , or edema. Right anterior knee with mild edema and warmth, no erythema/ induration; limited ROM right knee secondary to pain. NEUROLOGICAL: Awake and alert. No obvious cranial nerve deficits. Moves all extremities spontaneously. Normal speech. PSYCHIATRIC: Appropriate mood and affect; insight and judgment normal. Hospital Course 71 y/o female with a history HTN, CKD, CHF, and HIV presented to the ED with complaints of swelling and pain in her right knee. Gouty arthritis flare of R knee: patient initially admitted to observation for right knee pain. Knee xray reviewed and shows unremarkable limited examination of the right knee; Marked soft tissue swelling overlying the suprapatellar region. Synovial aspirations positive for uric acid. Fluid culture negative. Orthopedics consulted, no indication for any procedure. Continued patient's allopurinol. Patient responded well to prednisone and was discharged on prednisone taper. PT recommended [facility], case management arranged prior to discharge. Symptoms improved at discharge. Acute Kidney injury on CKD stage 4: on admission creatine 2.7, baseline 1.8. Admission complicated by ROXANNA on CKD as Creatinine increased to 3.6 after admission. Renal U/S showed small echogenic kidneys consistent with chronic medical renal disease. Ordered strict Is&Os ordered however patient incontinent , RN and patient report good urine output in diaper. Given IVF, then discontinued by nephrology. Cr improved to 2.66. Nephrology consulted and following, cleared for discharge, outpatient f/up. HTN, chronic: BP was elevated throughout admission. Cont home medication clonidine. Held lisinopril secondary to ROXANNA. Started on Norvasc 10mg daily, blood pressure improved. HIV, chronic: Continue with home medications. Outpatient f/up with ID. Pt Condition on Discharge: Stable Discharge Disposition: Disch w/ Home Health Serv Discharge Time: > 30 minutes Discharge Instructions DIET: Follow Instructions for: Heart Healthy Diet, Renal Failure Diet Activities you can perform: Regular-No Restrictions Follow up Referrals: Nephrology - 1 Week with Sherie Alejandro MD PCP Follow-up - 1 Week New Orders: BASIC METABOLIC PROF - 3-5 Days New Medications: Prednisone (21) 5 mg tab Dose Pack (Prednisone (21) 5 mg tab Dose Pack) 5 Mg Dspk 5 MG PO DIRECTED Inflammation #1 Ref 0 DSPK Allopurinol (Zyloprim) 100 Mg Tab 100 MG PO DAILY gout #30 Ref 0 TAB Amlodipine (Norvasc) 10 Mg Tab 10 MG PO DAILY Blood Pressure Management #30 TAB Hydrocodone-Acetaminophen (Hydrocodone-Acetaminophen) 5-325 mg Tab 1 TAB PO Q4H PRN moderate to severe pain #20 Ref 0 TAB Continued Medications: Dtqugcqi-Lpwihacnvjds-Ehwaexfzxz (Triumeq) 600-50-300 Mg Tab 1 TAB PO DAILY Hazardous agent; use appropriate precautions for handling & disposal. Mgmt Viral Infection #30 Ref 0 TAB Atovaquone Liq (Mepron Liq) 750 Mg/5 Ml Susp 1500 MG PO DAILY Take with food. Infection #300 Ref 0 ML Clonidine (Clonidine) 0.1 Mg Tab 0.1 MG PO DAILY Blood Pressure Management #60 Ref 0 TAB Discontinued Medications: Lisinopril (Lisinopril) 40 Mg Tab 40 MG PO DAILY Blood Pressure Management #30 Ref 0 TAB Additional Information The exam, history, and the medical decision-making described in the above note were completed with the assistance of the mid-level provider. I reviewed and agree with the findings presented. I attest that I had a [id number] encounter with the patient on the same day, and personally performed and documented my assessment and findings in the medical record. Diana Gutierrez PA-C Apr 06, 2017 11:01 Matt Barth MD Apr 06, 2017 18:12
== END 2017-04-05 18:47 | disposition home or self-care (01) ==
LOC: NEPD 14:35 → NEDA 20:21 → NEPHCDU 22:11
PROVIDERS: ADMIT Internal Medicine; ATTEND Internal Medicine
DX: M00.9 Pyogenic arthritis, unspecified (principal); M25.561 Pain in right knee; M25.551 Pain in right hip; M10.9 Gout, unspecified; R32 Unspecified urinary incontinence; E86.0 Dehydration; R79.82 Elevated C-reactive protein (CRP); R70.0 Elevated erythrocyte sedimentation rate; N17.9 Acute kidney failure, unspecified; I13.0 Hypertensive heart and chronic kidney disease with heart failure and stage 1 through stage 4 chronic kidney disease, or unspecified chronic kidney disease; I50.9 Heart failure, unspecified; N18.3 Chronic kidney disease, stage 3 (moderate); F41.9 Anxiety disorder, unspecified; B20 Human immunodeficiency virus [HIV] disease; M19.90 Unspecified osteoarthritis, unspecified site; Z79.899 Other long term (current) drug therapy; W01.0XXA Fall on same level from slipping, tripping and stumbling without subsequent striking against object, initial encounter
CPT/HCPCS: 20610; 73502; 73560; 76775; 80048; 81001; 82945; 83605; 84100; 84132; 84157; 85025; 85610; 85652; 85730; 86021; 86038; 86140; 86160; 87040; 87070; 87205; 89051; 89060; 96374; 97110; 97116; 97162; 97530; 99285; C9113; G0378; G8987; G8988; J0690; J1170; J2270; J3370; J7030; J7050; J7512

== ENCOUNTER 2017-04-07 11:51 | Observation (INO) | payer MEDICARE, MEDICAID ==
[~2017-04-07] VITALS: Ht 157.5 cm; Wt 4.1 kg
[~2017-04-07 11:51] MED LIST changes: +ABAC1TAB3 PO; -ACET325 PO; +ALLO100 PO; +AMLO10 PO; +ATOV750UDC PO; -AZIT600 PO; +CLON0.1T PO; -DAPS100 PO; -DOCU1CAP39 PO; -Gabapentin PO; +HYDR-3516 PO; -METO25 PO; -OXYC1SOL5 PO; +PRED5PAK PO
[2017-04-07] MEDS ORDERED: SODIUM CHLOR 0.9% 1000 ML INJ 1,000 ML IV SCH (12:09)
--- NOTE | 2017-04-07 12:16 | PD ---
HPI Chief Complaint: tachycardia Time Seen by Provider: 12:05 Travel History International Travel<30 days: No Contact w/Intl Traveler<30days: No Traveled to known affect area: No History of Present Illness HPI This is a 71-year-old female with history of HIV on antiretroviral therapy, hypertension, recently admitted on March 31 for right knee pain/rule out septic arthritis. Her workup revealed gouty arthritis with no evidence of septic joint. She was discharged on April 05 with prescriptions for prednisone taper, amlodipine, Lortab, allopurinol as new medications as well as to continue her triumec, mepron, clonidine. The patient was scheduled Home health care visit her home and today they visited her. Her pulse was initially noted to be 120 and the home health care nurse called the paramedics. The patient has no complaints at this time. She is having no palpitations, chest pain or shortness of breath, nausea or vomiting, abdominal pain, diarrhea or constipation, dysuria, lightheadedness or dizziness, headache. She reports that she feels normal and her right knee pain has improved since discharge. She has had a normal appetite. She has been taking her medications as prescribed. She has no complaints at this time. PFSH Past Medical History Arthritis: Yes Anxiety: Yes Cancer: No Cardiovascular Problems: Yes (RIGHT KNEE PAIN) Congestive Heart Failure: Yes Diabetes: No Diminished Hearing: No Endocrine: No Genitourinary: Yes Hypertension: Yes Immune Disorder: No Musculoskeletal: Yes Neurologic: No Psychiatric: No Reproductive: No Respiratory: No Immunizations Current: Yes Renal Failure: Yes Menopausal: Yes Past Surgical History AICD: No Arteriovenous Shunt: No Section: Yes (x 2) Gynecologic Surgery: Yes ( X 2) Insulin Pump: No Joint Replacement: No Pacemaker: No Social History Alcohol Use: Yes (OCC- beer ) Tobacco Use: No Substance Use: No Allergies-Medications (Allergen,Severity, Reaction): Coded Allergies: No Known Allergies (Unverified , 04/07/17) Reported Meds & Prescriptions Reported Meds & Active Scripts Active Norvasc (Amlodipine Besylate) 10 Mg Tab 10 Mg PO DAILY Zyloprim (Allopurinol) 100 Mg Tab 100 Mg PO DAILY Prednisone (21) 5 mg tab Dose Pack (Prednisone) 5 Mg Dspk 5 Mg PO DIRECTED Hydrocodone-Acetaminophen 5-325 mg Tab 1 Tab PO Q4H PRN Reported Mepron Liq (Atovaquone) 750 Mg/5 Ml Susp 1,500 Mg PO DAILY Take with food. Triumeq (Lvaldbse-Yzsnyylcvbcy-Birfwexkrc) 600-50-300 Mg Tab 1 Tab PO DAILY Hazardous agent; use appropriate precautions for handling & disposal. Clonidine (Clonidine HCl) 0.1 Mg Tab 0.1 Mg PO DAILY Review of Systems Except as stated in HPI: all other systems reviewed are Neg Physical Exam Narrative GENERAL: Well-developed well-nourished female in no acute distress SKIN: Warm and dry. HEAD: Atraumatic. Normocephalic. EYES: Pupils equal and round. No scleral icterus. No injection or drainage. ENT: No nasal bleeding or discharge. Mucous membranes pink and moist. NECK: Trachea midline. No JVD. CARDIOVASCULAR: Regular rate and rhythm. No murmur appreciated. RESPIRATORY: No accessory muscle use. Clear to auscultation. Breath sounds equal bilaterally. GASTROINTESTINAL: Abdomen soft, non-tender, nondistended. Hepatic and splenic margins not palpable. MUSCULOSKELETAL: No obvious deformities. Moderate right knee effusion is noted. The patient is keeping her right knee flexed at 100. Pain with range of motion activities. There is no calf or thigh edema bilaterally. NEUROLOGICAL: Awake and alert. No obvious cranial nerve deficits. Motor grossly within normal limits. Normal speech. PSYCHIATRIC: Appropriate mood and affect; insight and judgment normal. Data Data Last Documented VS Vital Signs Date Time Temp Pulse Resp B/P Pulse Ox O2 Delivery O2 Flow Rate FiO2 04/07/17 12:22 104 97 Room Air 04/07/17 12:19 98.0 15 154/85 Orders Complete Blood Count With Diff (04/07/17 12:09) Comprehensive Metabolic Panel (04/07/17 12:09) Lactic Acid (04/07/17 12:09) Urinalysis - C+S If Indicated (04/07/17 12:09) Sodium Chlor 0.9% 1000 Ml Inj (Ns 1000 M (04/07/17 12:09) Electrocardiogram (04/07/17 12:09) Ecg Monitoring (04/07/17 12:09) Oximetry (04/07/17 12:09) Creatine Kinase (Cpk) (04/07/17 12:34) Troponin I (04/07/17 13:09) Chest, Single Ap (04/07/17 ) Labs Laboratory Tests Test 04/07/17 04/07/17 12:15 13:35 White Blood Count 12.0 TH/MM3 Red Blood Count 3.94 MIL/MM3 Hemoglobin 11.1 GM/DL Hematocrit 33.1 % Mean Corpuscular Volume 84.0 FL Mean Corpuscular Hemoglobin 28.1 PG Mean Corpuscular Hemoglobin 33.4 % Concent Red Cell Distribution Width 14.8 % Platelet Count 370 TH/MM3 Mean Platelet Volume 9.0 FL Neutrophils (%) (Auto) 88.2 % Lymphocytes (%) (Auto) 4.9 % Monocytes (%) (Auto) 5.7 % Eosinophils (%) (Auto) 0.8 % Basophils (%) (Auto) 0.4 % Neutrophils # (Auto) 10.6 TH/MM3 Lymphocytes # (Auto) 0.6 TH/MM3 Monocytes # (Auto) 0.7 TH/MM3 Eosinophils # (Auto) 0.1 TH/MM3 Basophils # (Auto) 0.1 TH/MM3 CBC Comment AUTO DIFF Differential Total Cells 100 Counted Neutrophils % (Manual) 86 % Band Neutrophils % 1 % Lymphocytes % 6 % Monocytes % 5 % Neutrophils # (Manual) 10.7 TH/MM3 Myelocytes 2 % Nucleated Red Blood Cells 1 /100 WBC Differential Comment FINAL DIFF MANUAL Platelet Estimate NORMAL Platelet Morphology Comment NORMAL Red Cell Morphology Comment NORMAL Sodium Level 140 MEQ/L Potassium Level 4.2 MEQ/L Chloride Level 110 MEQ/L Carbon Dioxide Level 19.9 MEQ/L Anion Gap 10 MEQ/L Blood Urea Nitrogen 66 MG/DL Creatinine 2.61 MG/DL Estimat Glomerular Filtration 22 ML/MIN Rate Random Glucose 154 MG/DL Lactic Acid Level 1.2 mmol/L Calcium Level 9.5 MG/DL Total Bilirubin 0.3 MG/DL Aspartate Amino Transf 19 U/L (AST/SGOT) Alanine Aminotransferase 29 U/L (ALT/SGPT) Alkaline Phosphatase 76 U/L Total Creatine Kinase 179 U/L Troponin I LESS THAN 0.02 NG/ML Total Protein 9.5 GM/DL Albumin 3.2 GM/DL Urine Color LIGHT-YELLOW Urine Turbidity CLEAR Urine pH 5.0 Urine Specific [place] 1.008 Urine Protein NEG mg/dL Urine Glucose (UA) NEG mg/dL Urine Ketones NEG mg/dL Urine Occult Blood NEG Urine Nitrite NEG Urine Bilirubin NEG Urine Urobilinogen LESS THAN 2.0 MG/DL Urine Leukocyte Esterase NEG Urine RBC LESS THAN 1 /hpf Urine WBC LESS THAN 1 /hpf Urine Squamous Epithelial 1 /hpf Cells Urine Mucus FEW /lpf Microscopic Urinalysis Comment CULT NOT INDICATED MDM Medical Decision Making Medical Screen Exam Complete: Yes Emergency Medical Condition: Yes Medical Record Reviewed: Yes Interpretation(s) EKG reveals sinus tachycardia, rate 102, T wave inversions in V5 and V6. CBC WBC 12, hemoglobin 11.1 Differential Diagnosis Corticosteroid side effect, atrial fibrillation, atrial flutter, sepsis, dehydration, electrolyte abnormality Narrative Course 71-year-old female who was recently admitted for gouty arthritis, discharged 2 days ago, presents today for evaluation of elevated heart rate. Heart rate was reportedly 120 at home. Plan is for basic lab work on EKG, ECG monitoring, IV fluids. The EKG does reveal sinus tachycardia, rate 102, there are T wave inversions in the lateral leads and therefore troponin/CK testing has been added on. CK and troponin are negative and the patient continues to voice no complaints. I discussed the case with my attending Dr. Sanchez and given the new finding of T-wave inversions in the lateral leads, he recommends admitting to the patient and the chest pain center for serial cardiac enzymes rule out purposes. The patient is agreeable at this time. The remainder of the workup is reassuring. Procedures EKG Prior to Arrival: Yes Diagnosis Primary Impression: Abnormal EKG Additional Impression: Tachycardia Admitting Information Admitting Physician Requests: Jose Borja Apr 07, 2017 12:16
[2017-04-07 12:17] VITALS: BP 154/85; PULSE 109; RESP 15; TEMP 98.2; O2SAT 97
[2017-04-07 12:19] VITALS: BP 154/85; PULSE 107; RESP 15; TEMP 98; O2SAT 97
[2017-04-07 12:57] LABS: AUTOMATED NEUTROPHIL # 10.6 TH/MM3 (1.8-7.7); BASOPHIL # 0.1 TH/MM3 (0-0.2); BASOPHIL % 0.4 % (0.0-2.0); EOSINOPHIL # 0.1 TH/MM3 (0-0.4); EOSINOPHIL % 0.8 % (0.0-4.0); HEMATOCRIT 33.1 % (35.0-46.0); LYMPH % 4.9 % (9.0-44.0); LYMPHOCYTE # 0.6 TH/MM3 (1.0-4.8); MEAN CORPUSCULAR HEMOGLOBIN 28.1 PG (27.0-34.0); MEAN CORPUSCULAR HGB CONC 33.4 % (32.0-36.0); MONO % 5.7 % (0.0-8.0); NEUT % 88.2 % (16.0-70.0); PLATELET COUNT 370 TH/MM3 (150-450); RED BLOOD COUNT 3.94 MIL/MM3 (4.00-5.30); RED CELL DISTRIBUTION WIDTH 14.8 % (11.6-17.2)
[2017-04-07 13:05] LABS: HEMO FLAGS AUTO DIFF
[2017-04-07 13:41] LABS: ALT (GPT) 29 U/L (10-53); ANION GAP 10 MEQ/L (5-15); AST (GOT) 19 U/L (15-37); BICARBONATE 19.9 MEQ/L (21.0-32.0); BLOOD UREA NITROGEN 66 MG/DL (7-18); CHLORIDE 110 MEQ/L (98-107); GLOMERULAR FILTRATION RATE 22 ML/MIN (>89); POTASSIUM 4.2 MEQ/L (3.5-5.1); SODIUM (NA) 140 MEQ/L (136-145)
[2017-04-07 13:43] LABS: ALKALINE PHOSPHATASE 76 U/L (45-117); TOTAL BILIRUBIN ADULT 0.3 MG/DL (0.2-1.0)
[2017-04-07 13:53] LABS: BANDS 1 % (0-6); CORRECTED NUCLEATED RBC 1 /100 WBC (0-0); MYELOCYTES 2 % (0-0); NEUTROPHIL # MANUAL DIFF 10.7 TH/MM3 (1.8-7.7); POLYS (SEG NEUTROPHILS) 86 % (16-70); WBC DIFF SAMPLE 100
[2017-04-07 13:54] LABS: PLATELET ESTIMATE SMEAR NORMAL (NORMAL); PLATELET MORPHOLOGY NORMAL (NORMAL); SCAN/DIFF FINAL DIFF MANUAL
[2017-04-07 14:13] LABS: BLOOD, URINE NEG (NEG); COMMENT (UR) CULT NOT INDICATED; CULTURE IF INDICATED CULT NOT INDICATED; GLUCOSE,URINE NEG (NEG); KETONE, URINE NEG (NEG); MUCUS URINE FEW /lpf (OCC); NITRITE,URINE NEG (NEG); SQUAMOUS EPITHELIAL CELL URINE 1 /hpf (0-5); URINE COLOR LIGHT-YELLOW (YELLW/STRAW)
--- NOTE | 2017-04-07 14:21 | RADRPT ---
EXAM DATE/TIME: 04/07/2017 14:00 [facility] COMPARISON: CHEST SINGLE AP, March 07, 2015, 10:59. INDICATIONS : Increased heart rate. MEDICAL HISTORY : Hypertension. Congestive heart failure. renal failure. SURGICAL HISTORY : None. ENCOUNTER: Initial ACUITY: 1 day PAIN SCORE: Non-responsive. LOCATION: Bilateral chest FINDINGS: A single view of the chest demonstrates the lungs to be symmetrically aerated without evidence of mas s, infiltrate or effusion. Chronic elevation of the left hemidiaphragm. The heart is at the upper li mits of normal in terms of size. The aorta is tortuous but stable. Osseous structures are intact. CONCLUSION: No acute disease. [place] Jr., MD on April 07, 2017 at 14:19 Board Certified Radiologist. This report was verified electronically.
[2017-04-07] MEDS ORDERED: ONDANSETRON HCL 4 MG/2 ML VIAL IV PRN (15:30)
[2017-04-07] MEDS ORDERED: ACETAMINOPHEN 500 MG CPLT PO PRN (15:30)
[2017-04-07] MEDS ORDERED: SODIUM CHLORIDE 0.9% FLUSH 10 ML FLUSH IV FLUSH PRN (15:30)
[2017-04-07] MEDS ORDERED: NITROGLYCERIN 0.4 MG SL 25 TABS/BTL SL PRN (15:30)
--- NOTE | 2017-04-07 16:18 | HHI.HP ---
[facility] Primary Care Physician Storm Taylor MD Chief Complaint Elevated heart rate History of Present Illness 71-year-old female with history of hypertension, congestive heart failure, chronic kidney disease, and recent septic arthritis of her right knee presents to the emergency room for further evaluation of elevated heart rate. Recently discharged 04/05/17 from [facility] diagnosed with right knee septic arthritis. Home health evaluated her today. Home health nurses found her heart rate to be 120 and called EMS. Patient denied any chest pain, discomfort, pressure, or palpitations. Continues to be chest pain-free. Denies any exertional chest pain or discomfort otherwise. Denies any previous chest pain. Review of Systems General: Recently discharged 04/05/17 with home health. Reports feeling much better since discharge. Reports a good appetite and compliance with medication. No fatigue or weakness. HEENT: No MURRAY, no dysphasia CV: As stated above. Continues to deny any chest pain or pressure. No palpitations or dizziness RESP: No SOB, cough, wheeze GI: No nausea, vomiting, bowel changes, diarrhea, or constipation. : No dysuria, reports occasional incontinence therefore she wears an adult brief. Known chronic kidney disease follows with a track layer although she cannot recall the name of the physician. EXT: No lower leg edema MS: Right knee continues to give her discomfort although improving. Ambulates with a walker, stating lately it is difficult to walk due to right knee pain. Home health following her case. NEURO: No LOC or motor/sensory deficits PSYCH: No anxiety, depression, or suicidal ideation SKIN: No rashes, no concerning lesions Past Family Social History Allergies: Coded Allergies: No Known Allergies (Unverified , 04/07/17) Past Medical History HIV, hypertension, septic arthritis, anxiety, congestive heart failure, CKD Past Surgical History C-sections 2 Reported Medications Active Norvasc (Amlodipine Besylate) 10 Mg Tab 10 Mg PO DAILY Zyloprim (Allopurinol) 100 Mg Tab 100 Mg PO DAILY Prednisone (21) 5 mg tab Dose Pack (Prednisone) 5 Mg Dspk 5 Mg PO DIRECTED Hydrocodone-Acetaminophen 5-325 mg Tab 1 Tab PO Q4H PRN Mepron Liq (Atovaquone) 750 Mg/5 Ml Susp 1,500 Mg PO DAILY Take with food. Triumeq (Yfeuynkd-Ievflgerdtgk-Ojhrtditvc) 600-50-300 Mg Tab 1 Tab PO DAILY Hazardous agent; use appropriate precautions for handling & disposal. Clonidine (Clonidine HCl) 0.1 Mg Tab 0.1 Mg PO DAILY Active Ordered Medications Current Medications Medications (Trade) Dose Ordered Sig/Caity Route Start Time Stop Time Status Last Admin (NS Flush) 2 ml UNSCH PRN IV FLUSH 04/07/17 15:30 (NS Flush) 2 ml BID IV FLUSH 04/07/17 21:00 (Tylenol) 500 mg Q4H PRN PO 04/07/17 15:30 (Zofran Inj) 4 mg Q6H PRN IV 04/07/17 15:30 (Nitrostat Sl) 0.4 mg Q5M PRN SL 04/07/17 15:30 (Aspirin) 325 mg DAILY PO 04/08/17 09:00 Family History Noncontributory for early onset cardiovascular disease Social History Known hypertension. No known diabetes, hyperlipidemia, or personal coronary artery disease. Lifelong nonsmoker. Endorses an occasional beer 34 times weekly. Denies any illegal drug use. Past cardiac testing None Physical Exam Vital Signs Vital Signs Date Time Temp Pulse Resp B/P Pulse Ox O2 Delivery O2 Flow Rate FiO2 04/07/17 12:22 104 97 Room Air 04/07/17 12:19 98.0 107 15 154/85 97 04/07/17 12:17 98.2 109 15 154/85 97 Room Air Physical Exam GENERAL: Alert WN, WD, NAD, thin, female HEAD: NC, AT NECK: Supple, no masses, trachea midline CV: RRR, without murmur, rub, gallop, no JVD, S1-S2 no S3-S4. RESP: Clear lungs throughout bilateral, no crackles, wheeze, rhonchi, symmetrical chest rise, nonlabored, able to speak in full sentences ABD: Soft, NT, ND, no masses, positive bowel tones EXT: Pulses +24, no dependent edema MS: Normal tone 4 extremities, nontender, no obvious deformities, full range of motion NEURO: CN II through CN XII grossly intact, motor strength 5/5, gait WNL PSYCH: A+O 3, flat affect, appropriate speech, appropriate mood and affect, insight and judgment SKIN: Normal turgor, normal texture Laboratory Laboratory Tests Test 04/07/17 04/07/17 12:15 13:35 White Blood Count 12.0 Red Blood Count 3.94 Hemoglobin 11.1 Hematocrit 33.1 Mean Corpuscular Volume 84.0 Mean Corpuscular Hemoglobin 28.1 Mean Corpuscular Hemoglobin 33.4 Concent Red Cell Distribution Width 14.8 Platelet Count 370 Mean Platelet Volume 9.0 Neutrophils (%) (Auto) 88.2 Lymphocytes (%) (Auto) 4.9 Monocytes (%) (Auto) 5.7 Eosinophils (%) (Auto) 0.8 Basophils (%) (Auto) 0.4 Neutrophils # (Auto) 10.6 Lymphocytes # (Auto) 0.6 Monocytes # (Auto) 0.7 Eosinophils # (Auto) 0.1 Basophils # (Auto) 0.1 CBC Comment AUTO DIFF Differential Total Cells 100 Counted Neutrophils % (Manual) 86 Band Neutrophils % 1 Lymphocytes % 6 Monocytes % 5 Neutrophils # (Manual) 10.7 Myelocytes 2 Nucleated Red Blood Cells 1 Differential Comment FINAL DIFF MANUAL Platelet Estimate NORMAL Platelet Morphology Comment NORMAL Red Cell Morphology Comment NORMAL Sodium Level 140 Potassium Level 4.2 Chloride Level 110 Carbon Dioxide Level 19.9 Anion Gap 10 Blood Urea Nitrogen 66 Creatinine 2.61 Estimat Glomerular Filtration 22 Rate Random Glucose 154 Lactic Acid Level 1.2 Calcium Level 9.5 Total Bilirubin 0.3 Aspartate Amino Transf 19 (AST/SGOT) Alanine Aminotransferase 29 (ALT/SGPT) Alkaline Phosphatase 76 Total Creatine Kinase 179 Troponin I LESS THAN 0.02 Total Protein 9.5 Albumin 3.2 Urine Color LIGHT-YELLOW Urine Turbidity CLEAR Urine pH 5.0 Urine Specific [place] 1.008 Urine Protein NEG Urine Glucose (UA) NEG Urine Ketones NEG Urine Occult Blood NEG Urine Nitrite NEG Urine Bilirubin NEG Urine Urobilinogen LESS THAN 2.0 Urine Leukocyte Esterase NEG Urine RBC LESS THAN 1 Urine WBC LESS THAN 1 Urine Squamous Epithelial 1 Cells Urine Mucus FEW Microscopic Urinalysis Comment CULT NOT INDICATED Result Diagram: 04/07/17 1215 04/07/17 1215 Imaging Last Impressions Chest X-Ray 04/07/17 0000 Signed Impressions: Service Date/Time: Friday, April 07, 2017 14:00 - CONCLUSION: No acute disease. [place] Jr., MD Course EKGs Normal sinus rhythm, T-wave inversions laterallynot a new finding,compared to EKGs in 2015 Assessment and Plan Assessment and Plan #1 Tachycardiaadmitted to chest pain center. Ruled out with 1 set of EKGs and cardiac enzymes. Seen and evaluated by Dr. Florinda Garcia. No further cardiac testing. Patient has continued to deny any chest pain or discomfort. EKG compared with previous EKGs and T-wave inversion is not a new finding, therefore will discharge later this afternoon. Heart rate labile 80-95 during exam, fluid bolus given in ER. Encouraged her to follow-up with her PCP. No change in home medications, continue as previously ordered. Continue with home health. Vivian Stover Apr 07, 2017 16:18
--- NOTE | 2017-04-07 16:39 | HHI.DCPOC ---
Discharge Care Plan Diagnosis: (1) Tachycardia Goals to Promote Your Health * To prevent worsening of your condition and complications * To maintain your health at the optimal level Directions to Meet Your Goals Take your medications as prescribed Follow your dietary instruction Follow activity as directed Keep your appointments as scheduled Take your immunizations and boosters as scheduled If your symptoms worsen call your PCP, if no PCP go to Urgent Care Center or Emergency Room Smoking is Dangerous to Your Health. Avoid second hand smoke Call the 24-hour hour crisis hotline for domestic abuse at Vivian Stover Apr 07, 2017 16:39
--- NOTE | 2017-04-07 17:08 | EKG ---
Date Performed: 04/07/2017 Time Performed: 12:24:38 PTAGE: 71 years EKG: SINUS TACHYCARDIA LEFT VENTRICULAR HYPERTROPHY AND ST-T CHANGE ABNORMAL ECG PREVIOUS TRACING : 03/07/2015 10.13 Compared to prior tracing no significant change DOCTOR: Manuel Sotomayor Interpretating Date/Time 04/07/2017 17:06:45
[2017-04-07 20:41] VITALS: BP 125/82; PULSE 94; RESP 16; O2SAT 100
[2017-04-07] MEDS ORDERED: SODIUM CHLORIDE 0.9% FLUSH 10 ML FLUSH IV FLUSH SCH (21:00)
[2017-04-08] MEDS ORDERED: ASPIRIN 325 MG TAB PO SCH (09:00)
== END 2017-04-07 21:01 | disposition home or self-care (01) ==
LOC: NEPE 11:51 → NEDA 14:54
PROVIDERS: ADMIT Internal Medicine Interventional Cardiology; ATTEND Internal Medicine Interventional Cardiology
DX: R00.0 Tachycardia, unspecified (principal); I13.0 Hypertensive heart and chronic kidney disease with heart failure and stage 1 through stage 4 chronic kidney disease, or unspecified chronic kidney disease; I50.9 Heart failure, unspecified; N18.9 Chronic kidney disease, unspecified; F41.9 Anxiety disorder, unspecified; M00.9 Pyogenic arthritis, unspecified; Z79.899 Other long term (current) drug therapy; Z21 Asymptomatic human immunodeficiency virus [HIV] infection status
CPT/HCPCS: 71010; 80053; 81001; 82550; 83605; 84484; 85007; 85027; 93005; 96360; 99285; G0378; J7030

== ENCOUNTER 2017-04-25 12:11 | Emergency (ER) | payer MEDICARE, MEDICAID ==
[~2017-04-25] VITALS: Ht 157.5 cm; Wt 45.0 kg
[2017-04-25 12:17] VITALS: BP 216/102; PULSE 92; RESP 20; TEMP 97.9; O2SAT 97
[2017-04-25] MEDS ORDERED: IBUP-232 PO (12:33)
[2017-04-25] MEDS ORDERED: CARD180C5 PO (12:33)
[2017-04-25 12:34] VITALS: BP 202/118; PULSE 95; RESP 19; TEMP 97.4; O2SAT 97
--- NOTE | 2017-04-25 12:43 | PD ---
HPI Chief Complaint: Skin Problem Time Seen by Provider: 12:40 Travel History International Travel<30 days: No Contact w/Intl Traveler<30days: No Traveled to known affect area: No History of Present Illness HPI 71-year-old female presents to the emergency department with complaint of a rash to her right lower back that wraps around to her abdomen since yesterday. Says the rashes burning in sensation but says it is not too painful. Denies fever, vomiting. Denies new detergents, lotions, soaps, medications, environmental exposures. Denies history of she goes vaccination. Has had shingles in the past. Symptoms are mild in severity. Patient's blood pressure is also elevated in the ER. She takes Cardizem for hypertension and took it this morning. Primary care provider is Dr. Taylor who switched her blood pressure medication to week ago. She was taking Norvasc and clonidine and was told to stop these medications and start Cardizem. She denies chest pain, shortness of breath, nausea, vomiting, headache, lightheadedness, dizziness, diaphoresis, change in vision. Has no other medical complaints. No known allergies. No other modifying factors or associated signs and symptoms. PFSH Past Medical History Hx Anticoagulant Therapy: No Arthritis: Yes Atrial Fibrillation: Yes Anxiety: Yes Cancer: No Cardiovascular Problems: No Chemotherapy: No Congestive Heart Failure: Yes Cerebrovascular Accident: No Diabetes: No Diminished Hearing: No Endocrine: No Gout: Yes Genitourinary: Yes Hypertension: Yes Immune Disorder: No Musculoskeletal: Yes Neurologic: No Psychiatric: No Reproductive: No Respiratory: No Immunizations Current: Yes Renal Failure: Yes Tetanus Vaccination: Unknown Menopausal: Yes Past Surgical History AICD: No Arteriovenous Shunt: No Section: Yes Gynecologic Surgery: Yes ( X 2) Hysterectomy: No Insulin Pump: No Joint Replacement: No Pacemaker: No Other Surgery: Yes () Social History Alcohol Use: Yes (occ) Tobacco Use: Yes (chewing tobacco) Substance Use: No Allergies-Medications (Allergen,Severity, Reaction): Coded Allergies: No Known Allergies (Unverified , 04/25/17) Reported Meds & Prescriptions Reported Meds & Active Scripts Active Norvasc (Amlodipine Besylate) 10 Mg Tab 10 Mg PO DAILY Acyclovir 800 Mg Tab 800 Mg PO 5 TIMES A DAY 7 Days Zyloprim (Allopurinol) 100 Mg Tab 100 Mg PO DAILY Reported Cardizem CD 24 HR (Diltiazem CD 24 HR) 180 Mg Caper 180 Mg PO DAILY Ibuprofen 600 Mg Tab 600 Mg PO Q6H PRN Triumeq (Jsfdusja-Sbjxoxdsmuol-Ooiqhxeosv) 600-50-300 Mg Tab 1 Tab PO DAILY Hazardous agent; use appropriate precautions for handling & disposal. Review of Systems Except as stated in HPI: all other systems reviewed are Neg Physical Exam Narrative GENERAL: Well-nourished, well-developed patient, in no acute distress SKIN: Warm and dry. Right lower back, flanks, and abdomen with erythremic grouped vesicles present in a dermatomal distribution. No drainage or edema. No signs of cellulitis. HEAD: Atraumatic. Normocephalic. EYES: Pupils equal and round. No scleral icterus. No injection or drainage. ENT: Mucosa pink and moist. Airway patent. NECK: Trachea midline. CARDIOVASCULAR: Regular rate and rhythm. No murmur appreciated. RESPIRATORY: No accessory muscle use. Lungs sounds clear and equal bilaterally. GASTROINTESTINAL: Abdomen soft, non-tender, nondistended. MUSCULOSKELETAL: No obvious deformities. No clubbing. No cyanosis. No edema. NEUROLOGICAL: Awake and alert. Oriented 3. No obvious cranial nerve deficits. Motor grossly within normal limits. Normal speech. PSYCHIATRIC: Appropriate mood and affect; insight and judgment normal. Data Data Last Documented VS Vital Signs Date Time Temp Pulse Resp B/P Pulse Ox O2 Delivery O2 Flow Rate FiO2 04/25/17 12:34 97.4 95 19 202/118 97 Room Air Orders Amlodipine (Norvasc) (04/25/17 13:00) [facility] Medical Decision Making Medical Screen Exam Complete: Yes Emergency Medical Condition: Yes Medical Record Reviewed: Yes Differential Diagnosis Shingles, contact dermatitis, hypertension Narrative Course 71-year-old female physical exam consistent with shingles rash. Patient is afebrile and nontoxic-appearing. Patient's blood pressure was also elevated in the ER. She takes Cardizem and was switched from Norvasc and clonidine a week ago by her primary care provider. Patient is asymptomatic. I spoke with Dr. Schaefer, attending physician, and she agrees to restart Norvasc. Acyclovir and Norvasc prescribed for home. Instructed patient to follow up with primary care provider. Patient verbalizes understanding and agreement with treatment plan. Patient is medically cleared and stable for discharge. Discussed reasons to return to the emergency department. Patient agrees with treatment plan. The patients vital signs are stable and the patient is stable for outpatient follow- up and treatment. Patient discharged home, stable and in no acute distress. Diagnosis Primary Impression: Shingles rash Qualified Code: B02.9 - Herpes zoster without complication Additional Impression: HTN (hypertension) Qualified Code: I10 - Hypertension, unspecified type Referrals: Primary Care Physician Patient Instructions: General Instructions, Hypertension (ED), Shingles (ED) Additional Instructions: Take medications as prescribed Cold, wet compresses to the rash to help relieve itching and pain as needed Cool Bath to help relieve itching and pain as needed Follow-up with a primary care provider Return to the emergency department immediately with worsening of symptoms Med/Other Pt SpecificInfo: Prescription(s) given Scripts Amlodipine (Norvasc)10 Mg Tab10 Mg PO DAILY #30 TAB Ref 0 Prov:Jovita Jackson 04/25/17 Acyclovir 800 Mg [id number] Mg PO 5 TIMES A DAY 7 Days Ref 0 Prov:Jovita Jackson 04/25/17 Disposition: 01 DISCHARGE HOME Condition: Stable Jovita Jackson Apr 25, 2017 12:43
[2017-04-25] MEDS ORDERED: AMLO10 PO (12:48)
[2017-04-25] MEDS ORDERED: ACYC800T PO (12:48)
== END 2017-04-25 13:25 | disposition home or self-care (01) ==
LOC: NEPD 12:11
DX: B02.9 Zoster without complications (principal); I10 Essential (primary) hypertension; I48.91 Unspecified atrial fibrillation; I13.0 Hypertensive heart and chronic kidney disease with heart failure and stage 1 through stage 4 chronic kidney disease, or unspecified chronic kidney disease; I50.9 Heart failure, unspecified; N18.9 Chronic kidney disease, unspecified; F41.9 Anxiety disorder, unspecified; M10.9 Gout, unspecified; F17.220 Nicotine dependence, chewing tobacco, uncomplicated
CPT/HCPCS: 99284